=== PATIENT | male | born 1960 | race Caucasian/White ===

== ENCOUNTER 2025-04-29 16:35 | Emergency (ER) | payer BC, SELFPAY ==
--- OUTSIDE RECORDS SUMMARY | 2008-03-16 08:42 | XMS_ITS | Continuity of Care Document ---
Author Organization [facility] Address [address] [address] [place] [address] Phone Care Team Providers Care Instrument Panel Assembler Name Role Phone Unavailable Unavailable Unavailable Allergies, Adverse Reactions, Alerts Substance Reaction Status Criticality No Known allergies Medications Medication Instructions Dosage Effective Dates (start - stop) Status Comments omeprazole 20 mg Cap, Delayed Release Take one tablet by mouth daily - Active simvastatin 20 mg Tab Take 1 tablet by mouth daily - Active Multivitamin unknown Take one tablet by mouth daily - Active Protonix 40 mg Tab Take one tablet by mouth daily - No Longer Active Procedures Procedure Date Offic/outpt E&m Estab Mod-hi 2 08 [id number] Advance Directives Directive Yes / No Effective Date File Name Resuscitation Not Answered N/A N/A Life Support Not Answered N/A N/A Intubation Not Answered N/A N/A Antibiotics Not Answered N/A N/A IV Fluid Support Not Answered N/A N/A Tube Feed Not Answered N/A N/A Other Directive N/A N/A WARNING:The information contained in this section is historical and is provided for information only and does not constitute a legal document or any assurance that the information is still accurate. Please verify the information with the nguyen of the legal document before using it for clinical purposes. Encounters Encounter Description Practice Location Reason(s) For Visit Diagnoses Date Provider Providers Copied on Encounter Offic/outpt E&m Estab Mod-hi 2 [facility], [address] [address], [place], [place], [id number], [place] tel:[phone] [facility] Simeon's Esophagus 8 No Information [facility], [address] [address], [place], [place], [id number], [place] tel:[phone] [facility] No Information Savanna Mason. [address] [facility], [facility] [address], [place], [place], [id number], [place]. tel:[phone] Family History Family Member Type Diagnosis Age At Onset First degree family history Problem (finding) malignant neoplasm of lung First degree family history Problem (finding) Colon Polyps First degree family history Problem (finding) No history of Crohn's First degree family history Problem (finding) No history of Cancer, colon First degree family history Problem (finding) No history of Ulcerative Colitis Payers Payer name Insurance type Covered libertarian ID Authoriza tion(s) [employer] [id number] Social History Type Description Quantity Date Captured Comments Alcohol Use Details Caffeine Use Details Unknown Tobacco Use Status No Information Smoking Status No Information Sex Male Chief Complaint And Reason For Visit No Information Reason For Referral Reason For Referral No Information History Of Present Illness Encounter Date Complaint History Of Prese nt Illness No Information Functional Status Date Functional Assessmen t No Information Instructions Date Instruction Additional Infor mation No Information Assessments Type Assessment Date No Information Patient Care Teams Name Effective Dates (start - stop) Status Members No Information
--- OUTSIDE RECORDS SUMMARY | 2025-04-16 12:40 | XMS_ITS | Encounter Summary ---
Author Organization [employer] Address [address] [place] [address] Care Team Providers Care Controller Operations And Hr Manager Name Role Phone Marcos Villarreal MD Primary Care Provider [phone] Reason for Referral * Consult/Transfer Care (Routine) - New Request Specialty Diagnoses / Procedures Referred By Sharmaine dahl Referred To Contact Cardiology Diagnoses Dilatation of thoracic aorta (HRC) Jarek Boogie PA-C [address] [facility] [place] [address] Phone: tel: fax: Referral ID Status Reason Start Date Expiration Date V isits Requested Visits Authorized [id number] New Request 04/16/2025 07/16/2026 1 1 Scheduling Instructions Your clinician has recommended an appointment with [facility]. You can quickly schedule your appointment by signing in to your online account at [email or web address] or through the text message you may have received. You can also make an appointment by calling [phone]. We also suggest you call your health insurance provider about your benefits and coverage for this appointment. Question Answer Appointment Urgency? Non-Urgent Reason for visit? dilated thoracic aorta * Procedure/Equipment (Routine) - Closed Specialty Diagnoses / Procedures Referred By Sharmaine dahl Referred To Contact Diagnoses Abnormal CXR Procedures CT Chest WO IV Cont Jarek Boogie PA-C [address] [place] [address] Phone: tel: fax: Referral ID Status Reason Start Date Expiration Date Visits Re quested Visits Authorized [id number] Closed 04/16/2025 05/16/2025 1 1 * Procedure/Equipment (Routine) - Incomplete Specialty Diagnoses / Procedures Referred By Sharmaine dahl Referred To Contact Diagnoses Fever, unspecified fever cause Procedures XR Chest 2 Views Jarek Boogie PA-C [address] [place] [address] Phone: tel: fax: Referral ID Status Reason Start Date Expiration Date V isits Requested Visits Authorized [id number] Incomplete 04/16/2025 07/16/2026 1 1 Reason for Visit * Reason Comments Fever Encounter Details Date Type Department Care Team (Late st Contact Info) Description 04/16/2025 12:40 PM CDT Office Visit [facility] [address] [place] [phone] Jarek Boogie PA-C [address] [place] [address] Fever, unspecified fever cause; Abnormal CXR; Urinary tract infection with hematuria, site unspecified; Pneumonia of left lower lobe due to infectious organism; Dilatation of thoracic aorta (HRC); Gallbladder sludge Social History Tobacco Use Types Packs/Day Years Used Date Smoking Tobacco: Never Smokeless Tobacco: Never Alcohol Use Standard Drinks/Week Comments Not Currently 1 (1 standard drink = 0.6 oz pure alcohol) Less than 1 or 2 drinks a month Humiliation, Afraid, Rape, and Kick questionnair e Answer Date Recorded Fear of Current or Ex-Partner Not on file Within the last year, have y ou been humiliated or emotionally abused in other ways by your partner or ex-partner? No 02/18/2024 Within the last year, have y ou been kicked, hit, slapped, or otherwise physically hurt by your partner or ex-partner? No 02/18/2024 Within the last year, have y ou been raped or forced to have any kind of sexual activity by your partner or ex-partner? No 02/18/2024 PHQ-2 Answer Date Recorded PHQ-2 Score 0 01/09/2025 Financial Resource Strain Answer Date R ecorded Is it hard for you to pay fo r the very basics like food, housing, medical care or heating? No 12/28/2023 Food Insecurity Answer Date Recorded Does your food run out before you have the money to buy more? No 12/28/2023 Transportation Needs Answer Date Record ed Does a lack of transportatio n keep you from your medical appointments or from getting your medications? No 024 Sex and Gender Information Value Date Recorded Sex Assigned at Not on file Legal Sex Male 8:18 PM CDT Gender Identity Not on file Sexual Orientation Not on file Occupation Industry Job Start Date Job End Date IT Not on file Not on file Not on file documented as of this encounter Last Filed Vital Signs Vital Sign Reading Time Taken Comments Blood Pressure 129/80 04/16/2025 12:27 PM CDT Pulse 102 04/16/2025 12:27 PM CDT Temperature 37.8 C (100 F) 04/16/2025 12:27 PM CDT Respiratory Rate 18 04/16/2025 12:27 PM CDT Oxygen Saturation 94% 04/16/2025 12:27 PM CDT Inhaled Oxygen Concentration - - Weight - - Height - - Body Mass Index - - documented in this encounter Progress Notes * Jarek Boogie PA-C - 04/16/2025 12:40 PM CDT Fevers T max 102.5 for the past 5 days. Has been fatigued, decreased appetite. Denies cough, congestion Patient is a 64 year old male presenting with fevers since last Wednesday. He has taken tylenol, which helps momentarily, but then the fever returns. He denies any cough, congestion, joint pain, diarrhea, chest pain, ear pain, and neck pain. He denies rash. He denies any urinary symptoms. He is unaware of any tick bites [place] recently and no one else at home is sick. He is not on any immunocompromising medications. Remainder of review of systems is negative. Past Medical History: Problem List[1] Adverse Drug Reactions: Patient has no known allergies. Medications: amLODIPine, atorvastatin, losartan, and omeprazole Family History: Family History[2] Social History: Social History[3] Review of Systems: All systems were reviewed and found to be negative except as noted above. OBJECTIVE: General: NAD Skin: Mucous membranes are moist, no sign of dehydration. Head: Normocephalic. Eyes: PERRLA, full EOM. External exams normal. Ears: Normal pinnae, canals. TM's:[normal] Nose: Patent, without deformity. Throat: Moist mucous membranes without lesions, erythema, or exudate. Respiratory: Normal respiratory effort. Lungs are clear with good breath sounds. Heart: RR without murmurs, rubs, or gallops. Abdomen: The abdomen was flat, soft and nontender without guarding rebound or masses. Vital Signs: BP 129/80 (BP Location: Right Arm, BP Cuff Size: Regular - Long) Pulse (!) 102 Temp 37.8 ??C (100 ??F) (Oral) Resp 18 SpO2 94% Labs: Results for orders placed or performed in visit on 04/16/25 UA with Microscopic: Clean Catch Specimen: Clean Catch; Urine Result Value Ref Range Color Yellow Clarity Clear Clear Specific [place] 1.025 1.005 - 1.030 pH 6.0 5.0 - 8.0 Protein 30 (A) Neg/Trace mg/dL Glucose Negative Negative mg/dL Ketones Negative Negative mg/dL Urobilinogen 4.0 (A) <2.0 EU/dL Bilirubin Small (A) Negative Blood Small (A) Neg/Trace Nitrite Negative Negative Leukocyte Esterase Trace (A) Negative Source Clean Catch ALT (SGPT) Result Value Ref Range ALT (SGPT) 77 (H) 0 - 55 U/L Complete Blood Count-W/Diff Result Value Ref Range WBC 12.7 (H) 3.5 - 10.5 x10(9)/L RBC 5.32 4.32 - 5.72 x10(12)/L Hemoglobin 15.0 13.5 - 17.5 g/dL HCT 44.5 38.8 - 50.0 % MCV 83.6 80.0 - 100.0 fL MCH 28.2 27.6 - 33.3 pg MCHC 33.7 31.5 - 35.2 g/dL RDW 13.2 11.9 - 15.5 % Platelets 267 150 - 450 x10(9)/L Neutrophil Absolute 10.7 (H) 1.7 - 7.0 10(9)/L Lymphocyte Absolute 0.8 (L) 1.0 - 4.8 10(9)/L Monocyte Absolute 1.1 (H) 0.2 - 0.9 10(9)/L Eosinophil Absolute 0.0 0.0 - 0.5 10(9)/L Basophil Absolute 0.0 0.0 - 0.3 10(9)/L Immature Granulocyte % 0.2 0.0 - 0.5 % Urine Microscopic Evaluation: Clean Catch Specimen: Clean Catch; Urine Result Value Ref Range Red Blood Cells 0-3 0 - 3 /HPF White Blood Cells 10-20 (A) 0 - 5 /HPF Bacteria Few (A) None Seen /HPF Squamous Epithelial Cells Few None Seen, Occasional, Few /HPF Mucus Present (A) None Seen /HPF X-Rays: CT Chest WO IV Cont Result Date: 04/16/2025 EXAM: CT CHEST WO IV CONT INDICATION: abnormal cxr COMPARISON: Chest x-ray from 04/16/2025. TECHNIQUE: Noncontrast images were obtained through the chest. FINDINGS: CHEST WALL AND LOWER NECK: Unremarkable. HEART AND VASCULATURE: Normal heart size. No pericardial effusion. The thoracic aorta at the level of the proximal arch and brachiocephalic takeoff is mildly dilated measuring 4.5 cm in diameter. However, the ascending aorta more proximally demonstrates only mild ectasia measuring 4.1 cm in diameter. The distal aortic arch and descending thoracic aorta appear more normal in caliber. No significant coronary artery calcifications. MEDIASTINUM: Unremarkable esophagus. No adenopathy. LUNGS AND PLEURAL SPACE: 1.0 cm nodule in the lingula on series 4, slice 55. There is small surrounding satellite reticulonodular opacity surrounding this nodule within the lingula as well. Tiny calcified granuloma in the superior segment of the right lower lobe on slice 40. Lungs are otherwise clear. UPPERABDOMEN: Liver is diffusely hypodense compatible with hepatic steatosis. Suspect layering sludge inthe gallbladder. 3.5 cm exophytic lesion arising from the upper pole of the right kidney which has density measurements most compatible with a cyst (23 Hounsfield units). BONES: Unremarkable. 1. There is a 1.0 cm nodule in the lingula on slice 55 with surrounding small reticulonodular opacity. Although nonspecific the appearance would be most compatible with an atypical infectious processof the small airways, which is of uncertain chronicity. Short-term follow-up chest CT in three months is recommended to ensure stability or resolution, per recommendations below. 2. Mildly dilated ascending thoracic aorta, greatest at the proximal aortic arch where the aorta measures 4.5 cm in maximal diameter. Nonemergent cardiology consult recommended. 3. Diffuse hepatic steatosis. PN ConsensusRecommendation for multiple solid nodules, the largest greater than 8 mm Low risk: CT Chest WO IV Cont at 3-6 months, then consider CT Chest WO IV Cont at 18-24 months. High risk (older age, smoking history, emphysema, fibrosis): CT Chest WO IV Cont at 3-6 months, then a CT Chest WO IV Cont at 18-24 months. PN Consensus Recommendations are not intended for patients younger than 35 years, patients that are immunocompromised or patients with cancer. Imaging follow-up for these patients should be based on the overall clinical picture. Recommend non-urgent pulmonary consultation. Abnormal findings requiring follow-up. Recommend: Follow-up chest CT in three months, and nonemergent pulmonary medicine consultation and cardiology consultation within the next three months. Recommendation: imaging and consultation Signed by: Kimo Sheffield 04/16/2025 3:19 PM XR Chest 2 Views Result Date: 04/16/2025 EXAM: XR CHEST 2 VIEWS INDICATION: fever of unknown origin COMPARISON: 01/14/2014. FINDINGS: 9 mm nodular opacity projecting over the lateral aspect of the left lower lung. This was not present on the prior examination. A CT scan is recommended for further assessment. Normal heart size. No vascular engorgement. No pneumothorax. No confluent airspace infiltrate. No pleural effusion. Abnormal findings requiring follow-up. Recommend: Noncontrast chest CT, either now or within the next two weeks.. Recommendation: imaging Signed by: Edgardo Strong 04/16/2025 2:09 PM Initial x-rays are interpreted independently by myself. ASSESSMENT: 1. Fever, unspecified fever cause 2. Abnormal CXR 3. Urinary tract infection with hematuria, site unspecified 4. Pneumonia of left lower lobe due to infectious organism 5. Dilatation of thoracic aorta (HRC) 6. Gallbladder sludge Medical Decision Making: Patient is a 64 year old male presenting for evaluation for fevers of 5 days. He is well-appearing and non-toxic on examination. His physical exam and ROS was unremarkable. His fever is low grade in clinic today, but he continues to feel fatigued and have diminished appetite. Differential diagnosis is broad and includes Lyme disease, tick-borne etiologies, pneumonia, UTI,acute abdominal etiologies and other causes. A CBC was obtained which showed a white count of 12.7 with a left shift of 10.7 neutrophils. His ALT was 77. UA showed a small amount of blood, trace amount of leukocyte esterase and 10-20 white blood cells. A chest x-ray showed a 9 mm nodular opacity projecting over the lateral aspect of the left lower lung. A noncontrast chest CT was recommended. This was obtained which showed an atypical pneumonia. Chest CT also showed a mildly dilated ascending thoracic aortic. A nonemergent cardiology consult was recommended. CT also showed sludge in the gallbladder. At this point, I am going to place the patient on doxycycline to cover both atypical pneumonia and possibility for a tick-borne illness. I discussed with patient his ALT could be elevated due to Lyme disease or the fact that he has sludge in his gallbladder. Patient does not have any abdominal pain, therefore I do not feel an emergent right upper quadrant ultrasound is needed today. Patient was placed on cefdinir to cover for both pneumonia and UTI. I chose this over Augmentin due to thepotential for cholestasis with Augmentin. I would like the patient to make an appointment with his primary provider in the next 3-4 weeks. At this appointment, they can discuss a repeat chest CT to ensure resolution of today's findings. In addition, they can discuss if a gallbladder ultrasound would be warranted. Lastly, a referral to Cardiology was placed in my chart for the dilated thoracic aorta findings. Patient will call make this appointment. A Lyme and tick disease panel are still pending. I discussed the Lyme test may be inaccurate for up to 4-6 weeks. Patient is being covered for Lyme today with doxycycline. Additional treatment for tick-borne illness will be decided on the resultsof the tick panel. Patient will continue to take Tylenol for his fever. He will closely monitor hissymptoms. I discussed his fever should starts to resolve over the next 2-3 days. If patient continues to run a high fever despite today's treatment plan, he should return for re-evaluation. PLAN: Orders Placed This Encounter Complete Blood Count -W/Diff UA with Microscopic: Clean Catch ALT (SGPT) XR Chest [address] Chest WO IV Cont Lyme Antibody (Reflex to Lyme Confirmatory Panel) Tickborne Disease Panel by PCR Cardiology Consult-Adults doxycycline hyclate (VIBRA-TABS) 100 MG tablet cefdinir (OMNICEF) 300 MG capsule There are no Patient Instructions on file for this visit. No orders of the defined types were placed in this encounter. RTC p.r.n. Total visit time was 45 minutes. [1] Patient Active Problem List Diagnosis Simeon's esophagus Mild obstructive sleep apnea Dyslipidemia (HRC) History of basal cell carcinoma Elevated PSA Prostate cancer (HRC) Essential hypertension (HRC) Congenital malformation of intestine, unspecified History of dysplastic nevus Erectile dysfunction following radical prostatectomy Stress incontinence (female) (male) [2] Family History Problem Relation Name Age of Onset Stroke Mother Vianey Cancer, Lung Father Josh Cancer Father Josh [3] Social History Tobacco Use Smoking status: Never Smokeless tobacco: Never Vaping Use Vaping status: Never Used Substance Use Topics Alcohol use: Not Currently Alcohol/week: 1.0 standard drink of alcohol Types: 1 Cans of beer per week Comment: Less than 1 or 2 drinks a month Drug use: Never documented in this encounter Nursing Notes * Mariella Quintero RN - 04/16/2025 12:40 PM CDT Fevers T max 102.5 for the past 5 days. Has been fatigued, decreased appetite. Denies cough, congestion documented in this encounter Plan of Treatment Upcoming Encounters Date Type Department Care Team (Late st Contact Info) Description 05/04/2025 10:30 AM CDT Appointment [facility] [address] [place] [address] Marisol Schuler MD [address] [place] [address] 06/01/2025 3:15 PM CDT Appointment [facility] [place] [address] Card[facility] [address] [place] [phone] Piero De Los Santos DO [address] [place] [address] 06/06/2025 8:00 AM CDT Appointment [facility] [place] [address] [facility]rology [address] [place] [phone] [place] [address] [place], [place] [phone] Scheduled Referrals Name Type Priority Associated Diagnoses Orde r Schedule Cardiology Consult-Adults Referral Routine Dilatation of thoracic aorta (HRC) Ordered: 04/16/2025 documented as of this encounter Results * CT Chest WO IV Cont (04/16/2025 3:03 PM CDT) Anatomical Region Laterality Modality Chest, Lung Computed Tomogra phy Impressions 04/16/2025 3:19 PM CDT 1. There is a 1.0 cm nodule in the lingula on slice 55 with surrounding small reticulonodular opacity. Although nonspecific the appearance would be most compatible with an atypical infectious process of the small airways, which is of uncertain chronicity. Short-term follow-up chest CT in three months is recommended to ensure stability or resolution, per recommendations below. 2. Mildly dilated ascending thoracic aorta, greatest at the proximal aortic arch where the aorta measures 4.5 cm in maximal diameter. Nonemergent cardiology consult recommended. 3. Diffuse hepatic steatosis. PN Consensus Recommendation for multiple solid nodules, the largest greater than 8 mm Low risk: CT Chest WO IV Cont at 3-6 months, then consider CT Chest WO IV Cont at 18-24 months. High risk (older age, smoking history, emphysema, fibrosis): CT Chest WO IV Cont at 3-6 months, then a CT Chest WO IV Cont at 18-24 months. PN Consensus Recommendations are not intended for patients younger than 35 years, patients that are immunocompromised or patients with cancer. Imaging follow-up for these patients should be based on the overall clinical picture. Recommend non-urgent pulmonary consultation. Abnormal findings requiring follow-up. Recommend: Follow-up chest CT in three months, and nonemergent pulmonary medicine consultation and cardiology consultation within the next three months. Recommendation: imaging and consultation Signed by: Kimo Sheffield 04/16/2025 3:19 PM Narrative 04/16/2025 3:19 PM CDT EXAM: CT CHEST WO IV CONT INDICATION: abnormal cxr COMPARISON: Chest x-ray from 04/16/2025. TECHNIQUE: Noncontrast images were obtained through the chest. FINDINGS: CHEST WALL AND LOWER NECK: Unremarkable. HEART AND VASCULATURE: Normal heart size. No pericardial effusion. The thoracic aorta at the level of the proximal arch and brachiocephalic takeoff is mildly dilated measuring 4.5 cm in diameter. However, the ascending aorta more proximally demonstrates only mild ectasia measuring 4.1 cm in diameter. The distal aortic arch and descending thoracic aorta appear more normal in caliber. No significant coronary artery calcifications. MEDIASTINUM: Unremarkable esophagus. No adenopathy. LUNGS AND PLEURAL SPACE: 1.0 cm nodule in the lingula on series 4, slice 55. There is small surrounding satellite reticulonodular opacity surrounding this nodule within the lingula as well. Tiny calcified granuloma in the superior segment of the right lower lobe on slice 40. Lungs are otherwise clear. UPPER ABDOMEN: Liver is diffusely hypodense compatible with hepatic steatosis. Suspect layering sludge in the gallbladder. 3.5 cm exophytic lesion arising from the upper pole of the right kidney which has density measurements most compatible with a cyst (23 Hounsfield units). BONES: Unremarkable. us Jarek Boogie PA-C RAD CT Edited Resu lt - Final * XR Chest 2 Views (04/16/2025 2:02 PM CDT) Anatomical Region Laterality Modality Chest, Lung Digital Radiogra phy Narrative 04/16/2025 2:09 PM CDT EXAM: XR CHEST 2 VIEWS INDICATION: fever of unknown origin COMPARISON: 01/14/2014. FINDINGS: 9 mm nodular opacity projecting over the lateral aspect of the left lower lung. This was not present on the prior examination. A CT scan is recommended for further assessment. Normal heart size. No vascular engorgement. No pneumothorax. No confluent airspace infiltrate. No pleural effusion. Abnormal findings requiring follow-up. Recommend: Noncontrast chest CT, either now or within the next two weeks.. Recommendation: imaging Signed by: Edgardo Strong 04/16/2025 2:09 PM Procedure Note Edgardo Strong MD - 04/16/2025 EXAM: XR CHEST 2 VIEWS INDICATION: fever of unknown origin COMPARISON: 01/14/2014. FINDINGS: 9 mm nodular opacity projecting over the lateral aspect of the left lowerlung. This was not present on the prior examination. A CT scan isrecommended for further assessment. Normal heart size. No vascular engorgement. No pneumothorax. Noconfluent airspace infiltrate. No pleural effusion. Abnormal findings requiring follow-up. Recommend: Noncontrast chest CT, either now or within the next twoweeks.. Recommendation: imaging Signed by: Edgardo Strong 04/16/2025 2:09 PM Jarek Boogie PA-C RAD GD Final Resul t * (ABNORMAL) UA with Microscopic: Clean Catch (04/16/2025 1:44 PM CDT) Color Yellow 04/16/2025 2:10 PM CDT [facility] Clarity Clear Clear 04/16/2025 2:10 PM CDT [facility] Specific [place] 1.025 1.005 - 1.030 04/16/2025 2:10 PM CDT [facility] pH 6.0 5.0 - 8.0 04/16/2025 2:10 PM CDT [facility] Protein 30(A) Neg/Trace mg/dL 04/16/2025 2:10 PM CDT [facility] Glucose Negative Negative mg/dL 04/16/2025 2:10 PM CDT [facility] Ketones Negative Negative mg/dL 04/16/2025 2:10 PM CDT [facility] Urobilinogen 4.0(A) <2.0 EU/dL 04/16/2025 2:10 PM CDT [facility] Bilirubin Small(A) Negative 04/16/2025 2:10 PM CDT [facility] Blood Small(A) Neg/Trace 04/16/2025 2:10 PM CDT [facility] Nitrite Negative Negative 04/16/2025 2:10 PM CDT [facility] Leukocyte Esterase Trace(A) Negative 04/16/2025 2:10 PM CDT [facility] Source Clean Catch 04/16/2025 2:10 PM CDT [facility] Urine URINE SPECIMEN COLLECTION, CLEAN CATCH / Unknown Non-blood Collection / Unknown 04/16/2025 1:44 PM CDT 04/16/2025 1:44 PM CDT Jarek DURANC LAB_1 Final Resul t Performing Organization Address [facility] de Phone Number [facility] CLIA: [id number] [address] [place] [address], [facility] * (ABNORMAL) ALT (SGPT) (04/16/2025 1:34 PM CDT) ALT (SGPT) 77(H) 0 - 55 U/L 04/16/2025 2:35 PM CDT [facility] Blood Venipuncture / Unknown 04/16/2025 1:34 PM CDT 04/16/2025 1:34 PM CDT Jarek JORGENSEN-C LAB_1 Final Resul t Performing Organization Address [facility]/ZIP Co de Phone Number [facility] CLIA: [id number] [address] [place] [address] * Tickborne Disease Panel by PCR (04/16/2025 1:34 PM CDT) [facility] Anaplasma Phagocytophilum Not Detected Not Detected 04/17/2025 12:33 PM CDT [facility] Ehrlicia Species Not Detected Not Detected 04/17/2025 12:33 PM CDT [facility] Babesia Species Not Detected Not Detected 04/17/2025 12:33 PM CDT [facility] Blood VENOUS BLOOD SPECIMEN / Unknown Venipuncture / Unknown 04/16/2025 1:34 PM CDT 04/16/2025 1:34 PM CDT Narrative [facility] - 04/17/2025 12:33 PM CDT Test performed by real-time PCR. This test was developed, and its performance characteristics determined by [facility]. It has not been cleared or approved by the [place] Food and Drug Administration. Jarek Boogie PA-C LAB_1 Final Resul t Performing Organization Address [facility] Co de Phone Number [facility] CLIA: [id number] [address] [place] [address] * Lyme Antibody (Reflex to Lyme Confirmatory Panel) (04/16/2025 1:34 PM CDT) [facility] Lyme Disease Serology Negative Negative 04/17/2025 9:13 AM CDT [facility] Comment:The magnitude of the measured result, above the cutoff, is not indicative of the amount of antibody present. Blood Venipuncture / Unknown 04/16/2025 1:34 PM CDT 04/16/2025 1:34 PM CDT Jarek JORGENSEN-C LAB_1 Final Resul t Performing Organization Address City/[facility]/ZIP Co de Phone Number [facility] CLIA: [id number] [address] documented in this encounter Visit Diagnoses Diagnosis Fever, unspecified fever cause Abnormal CXR Other nonspecific abnormal finding of lung field Urinary tract infection with hematuria, site unspecified Pneumonia of left lower lobe due to infectious organism Dilatation of thoracic aorta (HRC) Thoracic aneurysm without mention of rupture Gallbladder sludge Calculus of gallbladder without mention of cholecystitis or obstruction Fever, unspecified fever cause Abnormal CXR Other nonspecific abnormal finding of lung field documented in this encounter Care Teams Controller Operations And Hr Manager Relationship Specialty [place] [address] [place] [address] PCP - General Family Practice 07/11/21 documented as of this encounter
--- OUTSIDE RECORDS SUMMARY | 2025-04-16 13:40 | XMS_ITS | Encounter Summary ---
Author Organization [employer] Address [address] [address] Care Team Providers Care Mixer Blender Name Role Phone CherelleMarcos rock MD Primary Care Provider [phone] Encounter Details Date Type Department Care Team (Late st Contact Info) Description 04/16/2025 1:40 PM CDT Lab Visit [facility] [address] [place] [address] Fever, unspecified fever cause Social History Tobacco Use Types Packs/Day Years [...] on file documented as of this encounter Plan of Treatment Upcoming Encounters Date Type Department Care Team (Late st Contact Info) Description 05/04/2025 10:30 AM CDT Appointment [facility] [address] [place] [address] Marisol Schuler MD [address] [place] [address] 06/01/2025 3:15 PM CDT Appointment [place] [address] Cardiology [address] [place] [phone] Piero De Los Santos, [address] [place] [address] 06/06/2025 8:00 AM CDT Appointment [facility] [address] Urology [address] [place] [address] [place] [address] [place], [place] [address] documented as of this encounter Procedures Procedure Name Priority Date/Time Associated Diagnosis Comments UA WITH MICROSCOPIC STAT 04/16/2025 1 :44 PM CDT Fever, unspecified fever cause UA MICRO STAT 04/16/2025 1:44 PM CDT Fever, unspecified fever cause CBC AND DIFFERENTIAL PANEL STAT 04/16/2025 1:34 PM CDT Fever, unspecified fever cause TICKBORNE DISEASE PANEL BY PCR Routine 04/16/2025 1:34 PM CDT Fever, unspecified fever cause COMPLETE BLOOD COUNT-W/DIFF STAT 04/16/2025 1:34 PM CDT Fever, unspecified fever cause LYME ANTIBODY (REFLEX TO LYME CONFIRMATORY PANEL) Routine 04/16/2025 1:34 PM CDT Fever, unspecified fever cause ALT (SGPT) STAT 04/16/2025 1:34 PM CDT Fever, unspecified fever cause documented in this encounter Results * (ABNORMAL) Urine Microscopic Evaluation: Clean Catch (04/16/2025 1:44 PM CDT) Red Blood Cells 0-3 0 - 3 /HPF 04/16/2025 2:10 PM CDT [facility] White Blood Cells 10-20(A) 0 - 5 /HPF 04/16/2025 2:10 PM CDT [facility] Bacteria Few(A) None Seen /HPF 04/16/2025 2:10 PM CDT [facility] Squamous Epithelial Cells Few None Seen, Occasiona l, Few /HPF 04/16/2025 2:10 PM CDT [facility] Mucus Present(A) None Seen /HPF 04/16/2025 2:10 PM CDT [facility] Urine URINE SPECIMEN COLLECTION, CLEAN CATCH / Unknown Non-blood Collection / Unknown 04/16/2025 1:44 PM CDT 04/16/2025 1:44 PM CDT Jarek Boogie PA-C LAB_1 Final Resul t [facility] CLIA: [id number] [place] [address], [facility] * (ABNORMAL) UA with Microscopic: Clean Catch (04/16/2025 1:44 PM CDT) Color Yellow 04/16/2025 2:10 PM CDT [facility] Clarity Clear Clear 04/16/2025 2:10 PM CDT [facility] Specific [place] 1.025 1.005 - 1.030 04/16/2025 2:10 PM CDT [facility] pH 6.0 5.0 - 8.0 04/16/2025 2:10 PM CDT [facility] Protein 30(A) Neg/Trace mg/dL 04/16/2025 2:10 PM CDT [facility] Glucose Negative Negative mg/dL 04/16/2025 2:10 PM CDT [facility] Ketones Negative Negative mg/dL 04/16/2025 2:10 PM CDT [facility] Urobilinogen 4.0(A) <2.0 EU/dL 04/16/2025 2:10 PM CDT [facility] Bilirubin Small(A) Negative 04/16/2025 2:10 PM CDT [facility] Blood Small(A) Neg/Trace 04/16/2025 2:10 PM CDT [facility] Nitrite Negative Negative 04/16/2025 2:10 PM CDT [facility] Leukocyte Esterase Trace(A) Negative 04/16/2025 2:10 PM CDT [facility] Source Clean Catch 04/16/2025 2:10 PM CDT [facility] Urine URINE SPECIMEN COLLECTION, CLEAN CATCH / Unknown Non-blood Collection / Unknown 04/16/2025 1:44 PM CDT 04/16/2025 1:44 PM CDT Jarek Boogie PA-C LAB_1 Final Resul t Performing Organization Address [facility]/State/ZIP Co de Phone Number [facility] CLIA: [id number] [place] [address], [facility] * (ABNORMAL) Complete Blood Count-W/Diff (04/16/2025 1:34 PM CDT) WBC 12.7(H) 3.5 - 10.5 x10(9)/L 04/16/2025 1:41 PM [facility] RBC 5.32 4.32 - 5.72 x10(12)/L 04/16/2025 1:41 PM [facility] Hemoglobin 15.0 13.5 - 17.5 g/dL 04/16/2025 1:41 PM [facility] HCT 44.5 38.8 - 50.0 % 04/16/2025 1:41 PM [facility] MCV 83.6 80.0 - 100.0 fL 04/16/2025 1:41 PM [facility] MCH 28.2 27.6 - 33.3 pg 04/16/2025 1:41 PM [facility] MCHC 33.7 31.5 - 35.2 g/dL 04/16/2025 1:41 PM [facility] RDW 13.2 11.9 - 15.5 % 04/16/2025 1:41 PM [facility] Platelets 267 150 - 450 x10(9)/L 04/16/2025 1:41 PM [facility] Neutrophil Absolute 10.7(H) 1.7 - 7.0 10(9)/L 04/16/2025 1:41 PM [facility] Lymphocyte Absolute 0.8(L) 1.0 - 4.8 10(9)/L 04/16/2025 1:41 PM [facility] Monocyte Absolute 1.1(H) 0.2 - 0.9 10(9)/L 04/16/2025 1:41 PM [facility] Eosinophil Absolute 0.0 0.0 - 0.5 10(9)/L 04/16/2025 1:41 PM [facility] Basophil Absolute 0.0 0.0 - 0.3 10(9)/L 04/16/2025 1:41 PM [facility] Immature Granulocyte % 0.2 0.0 - 0.5 % 04/16/2025 1:41 PM [facility] Blood Venipuncture / Unknown 04/16/2025 1:34 PM CDT 04/16/2025 1:34 PM CDT Jarek JORGENSEN-C LAB_1 Final Resul t Performing Organization Address City/[facility]/ZIP Co de Phone Number [facility] CLIA: [id number] [address] [place] [address] * (ABNORMAL) ALT (SGPT) (04/16/2025 1:34 PM CDT) Pathologist [facility] ALT (SGPT) 77(H) 0 - 55 U/L 04/16/2025 2:35 PM CDT [facility] Blood Venipuncture / Unknown 04/16/2025 1:34 PM CDT 04/16/2025 1:34 PM CDT Jarek JORGENSEN-C LAB_1 Final Resul t Performing Organization Address [facility] de Phone Number [facility] CLIA: [id number] [address] [place] [address] * Tickborne Disease Panel by PCR (04/16/2025 1:34 PM CDT) [facility] Anaplasma Phagocytophilum Not Detected Not Detected 04/17/2025 12:33 PM CDT [facility] Ehrlicia Species Not Detected Not Detected 04/17/2025 12:33 PM CDT [facility] Babesia Species Not Detected Not Detected 04/17/2025 12:33 PM CDT [facility] Blood VENOUS BLOOD SPECIMEN / Unknown Venipuncture / Unknown 04/16/2025 1:34 PM CDT 04/16/2025 1:34 PM CDT Narrative [facility] - 04/17/2025 12:33 PM CDT Test performed by real-time PCR. This test was developed, and its performance characteristics determined by [facility]. It has not been cleared or approved by the [place] Food and Drug Administration. Jarek JORGENSEN-C LAB_1 Final Resul t Performing Organization Address City/[facility]/ZIP Co de Phone Number [facility] CLIA: [id number] [address] * Lyme Antibody (Reflex to Lyme Confirmatory Panel) (04/16/2025 1:34 PM CDT) Lyme Disease Serology Negative Negative 04/17/2025 9:13 AM CDT [facility] Comment:The magnitude of the measured result, above the cutoff, is not indicative of the amount of antibody present. Blood Venipuncture / Unknown 04/16/2025 1:34 PM CDT 04/16/2025 1:34 PM CDT Jarek Boogie PA-C LAB_1 Final Resul t Performing Organization Address [facility] Co de Phone Number [facility] CLIA: [id number] [address] documented in this encounter Visit Diagnoses Diagnosis Fever, unspecified fever cause documented in this encounter Care Teams Mixer Blender Relationship Specialty [place] [address] [place] [address] PCP - General Family Practice 07/11/21 documented as of this encounter
--- OUTSIDE RECORDS SUMMARY | 2025-04-16 14:00 | XMS_ITS | Encounter Summary ---
Author Organization [employer] Address [address] [place] [address] Care Team Providers Care Cooking Teacher Name Role Phone CherelleMarcos rock MD Primary Care Provider [phone] Reason for Visit * Procedure/Equipment (Routine) - Incomplete Specialty Diagnoses / Procedures Referred By Sharmaine dahl Referred To Contact Diagnoses Fever, unspecified fever cause Procedures XR Chest 2 Views Jarek Boogie PA-C [address] [place] [address] Phone: tel: fax: Referral ID Status Reason Start Date Expiration Date V isits Requested Visits Authorized [id number] Incomplete 04/16/2025 07/16/2026 1 1 Encounter Details Date Type Department Care Team (Latest Contact Info) Description 04/16/2025 2:00 PM CDT Ancillary Procedure [facility] [address] [place] [address] Jarek Boogie PA-C [address] [place] [address] Fever, unspecified fever cause Social History Tobacco [...] Info) Description 05/04/2025 10:[address] [facility] [address] [place] [address] Marisol cShuler MD [address] [place] [address] 06/01/2025 3:15 PM CDT Appointment [address] [address] Cardiology [address] [place] [address] Piero De Los Santos, DO [address] [place] [address] 06/06/2025 8:00 AM CDT Appointment [place] [place] [address] [place] [phone] [place] [address] [facility] [place] [address] documented as of this encounter Procedures Procedure Name Priority Date/Time Associated Diagnosis Comments XR CHEST 2 VIEWS STAT 04/16/2025 2:02 PM CDT Fever, unspecified fever cause documented in this encounter Results * XR Chest 2 Views (04/16/2025 2:02 [...] by: Edgardo Strong 04/16/2025 2:09 PM Jarek NEWMAN GD Final Resul t documented in this encounter Visit Diagnoses Diagnosis Fever, unspecified fever cause documented in this encounter Care Teams Cooking Teacher Relationship Specialty [place] [address] [place] [address] PCP - General Family Practice 07/11/21 documented as of this encounter
--- OUTSIDE RECORDS SUMMARY | 2025-04-16 15:00 | XMS_ITS | Encounter Summary ---
Author Organization [employer] Address [address] [place] [address] Care Team Providers Care Veneer Jointer Returner Name Role Phone CherelleMarcos rock MD Primary Care Provider [phone] Reason for Visit * Procedure/Equipment (Routine) - Closed Specialty Diagnoses / Procedures Referred By Sharmaine dahl Referred To Contact Diagnoses Abnormal CXR Procedures CT Chest WO IV Cont Jarek Boogie PA-C [address] [place] [address] Phone: tel: fax: Referral ID Status Reason Start Date Expiration Date Visits Re quested Visits Authorized [id number] Closed 04/16/2025 05/16/2025 1 1 Encounter Details Date Type Department Care Team (Late st Contact Info) Description 04/16/2025 3:00 PM CDT Ancillary [place] [address] [place], [place] [id number] Jarek Boogie PA-C [address] [place] [address] Abnormal CXR Social History Tobacco Use Types Packs/Day Years [...] Info) Description 05/04/2025 10:30 AM CDT Appointment [facility] [address] D[address]ology [address] [place] [address] Marisol Schuler MD [address] [place] [address] 06/01/2025 3:15 PM CDT Appointment [place] [address] Cardiology [address] [place] [address] Piero De Los Santos DO [address] [place] [address] 06/06/2025 8:00 AM CDT Appointment [place] [place] [address] Urology [address] [place] [phone] [place] [address] [place] [address] documented as of this encounter Procedures Procedure Name Priority Date/Time Associated Diagnosis Comments CT CHEST WO IV CONT STAT 04/16/2025 3 :03 PM CDT Abnormal CXR documented in this encounter Results * CT Chest WO [...] RAD CT Edited Resu lt - Final documented in this encounter Visit Diagnoses Diagnosis Abnormal CXR Other nonspecific abnormal finding of lung field documented in this encounter Care Teams Veneer Jointer Returner Relationship Specialty Start [place] [address] [place] [address] PCP - General Family Practice 07/11/21 documented as of this encounter
--- OUTSIDE RECORDS SUMMARY | 2025-04-23 16:20 | XMS_ITS | Encounter Summary ---
Author Organization [facility] Address [address], [place] [address] Care Team Providers Care Area Relief Pilot Name Role Phone CherelleMarcos MD Primary Care Provider [phone] Reason for Visit * Reason Comments Follow-up Fever Encounter Details Date Type Department Care Team (Late st Contact Info) Description 04/23/2025 4:20 PM CDT Office Visit [place] [facility] [facility] [address] [place] [address] Harjit Patricio, WHEEL TRUING MACHINE TENDER, DEGREE CLERK [address] [place], [place] [phone] Fever, unspecified fever cause; Urinary tract infection with hematuria, site unspecified Social History Tobacco Use Types Packs/Day Years [...] Sign Reading Time Taken Comments Blood Pressure 133/77 04/23/2025 3:51 PM CDT Pulse 95 04/23/2025 3:51 PM CDT Temperature 39 C (102.2 F) 04/23/2025 3:51 PM CDT Respiratory Rate 18 04/23/2025 3:51 PM CDT Oxygen Saturation 96% 04/23/2025 3:51 PM CDT Inhaled Oxygen Concentration - - Weight - - Height - - Body Mass Index - - documented in this encounter Patient Instructions * Patient Instructions* Harjit Patricio, LUCIANO, DEGREE CLERK - 04/23/2025 4:20 PM CDT As with all flouroquinolones, like the antibiotic, that you were prescribed today there is a chanceof tendonopathy including tendon rupture. If you develop muscle/joint aches particularly in your lower extremities stop the medications and follow up with your doctor. Stop Cefdinir Take Probiotics * Attachments The following attachments cannot be sent through Care Everywhere. * UTI (Urinary Tract Infection): Male (Moldovan) documented in this encounter Progress Notes * Harjit Patricio APRN, CNP - 04/23/2025 4:20 PM CDT Chief Complaint Patient presents with Follow-up Fever Patient ID: Familia Lawrence Date of : 1960 SUBJECTIVE: 64 y.o. male presents with presents for evaluation of ongoing fever was evaluated a week ago and put on 2 different antibiotics for a likely lung infection and for a urinary infection. He returns today with continued fevers. Continues to have no cough or sore throat. No nausea or vomiting. Denies any urinary symptoms. Is currently taking antibiotics as noted and has 3 more days left. Denies any new or worsening symptoms however continues to have a fever therefore presented today for re-evaluation. Past medical and surgical history: Problem List[1] Family History: Family History[2] Social History: Social History[3] Medications: amLODIPine, atorvastatin, cefdinir, doxycycline hyclate, levoFLOXacin, losartan, and omeprazole Allergies: No Known Allergies ROS: These systems otherwise negative unless noted in HPI OBJECTIVE: Vitals: Patient Vitals for the past 24 hrs: BP Temp Temp src Pulse Resp SpO2 04/23/25 1551 133/77 (!) 39 ??C (102.2 ??F) Tympanic 95 18 96 % General: Alert, No obviousdiscomfort, well kept Eyes: No scleral icterus or conjunctival injection ENT: Moist mucus membranes, No lymphadenopathy Normal voice Resp: Normal work of breathing and No cough CV: Normal rate GI: Abdomen soft and non-distended. Normoactive BS. Non-tender, , No distention, No CVA tenderness,and Non-surgical without peritoneal features Skin: Warm, dry. No rashes or petechiae Musculoskeletal: Normal gross ROM Neuro: Alert and oriented to person/place/time, normal sensation Psychiatric: Normal affect, cooperative, good eye contact UC Course: LABS: Results for orders placed or performed in visit on 04/23/25 Complete Blood Count-W/Diff Result Value Ref Range WBC 11.7 (H) 3.5 - 10.5 x10(9)/L RBC 4.90 4.32 - 5.72 x10(12)/L Hemoglobin 13.8 13.5 - 17.5 g/dL HCT 41.7 38.8 - 50.0 % MCV 85.1 80.0 - 100.0 fL MCH 28.2 27.6 - 33.3 pg MCHC 33.1 31.5 - 35.2 g/dL RDW 13.2 11.9 - 15.5 % Platelets 502 (H) 150 - 450 x10(9)/L Neutrophil Absolute 9.4 (H) 1.7 - 7.0 10(9)/L Lymphocyte Absolute 1.1 1.0 - 4.8 10(9)/L Monocyte Absolute 0.9 0.2 - 0.9 10(9)/L Eosinophil Absolute 0.2 0.0 - 0.5 10(9)/L Basophil Absolute 0.0 0.0 - 0.3 10(9)/L Immature Granulocyte % 0.4 0.0 - 0.5 % Results for orders placed or performed in visit on 04/23/25 Urinalysis Routine, Micro/Culture if Pos: Clean Catch Specimen: Clean Catch; Urine Result Value Ref Range Urine Microscopic Evaluation Reflex Order Comment Urinalysis results meet criteria for reflex, urine microscopic evaluation performed. Color Yellow Clarity Hazy (A) Clear Specific [place] 1.020 1.005 - 1.030 pH 6.0 5.0 - 8.0 Protein 30 (A) Neg/Trace mg/dL Glucose Negative Negative mg/dL Ketones Negative Negative mg/dL Urobilinogen 2.0 (A) <2.0 EU/dL Bilirubin Small (A) Negative Blood Trace Neg/Trace Nitrite Negative Negative Leukocyte Esterase Trace (A) Negative Source Clean Catch Urine Microscopic Evaluation: Clean Catch Specimen: Clean Catch; Urine Result Value Ref Range Urine Culture Comment Urinalysis results do not meet criteria for urine culture reflex. Red Blood Cells 0-3 0 - 3 /HPF White Blood Cells 6-9 (A) 0 - 5 /HPF Bacteria Moderate (A) None Seen /HPF Squamous Epithelial Cells Few None Seen, Occasional, Few /HPF Mucus Present (A) None Seen /HPF IMAGING: CT Chest WO IV Cont Result Date: 04/17/2025 EXAM: CT CHEST WO IV CONT INDICATION: [...] upper pole of the right kidney which hasdensity measurements most compatible with a cyst (23 [...] Signed by: Edgardo Strong 04/16/2025 2:09 PM Reviewed previous imaging studies as well as previous laboratory studies. Medical Decision Making: Familia Lawrence is a 64 y.o. male presented with concerns for fever as noted above. His examination showed no acute physical findings. Review of his previous laboratory studies did show signs of urine infection however culture was not obtained. Given that patient continued to have fevers I repeated his urinalysis which again show signs of infection. I suspect he had a partially treated urine infection. He does not show signs of pyelonephritis. Imaging was not indicated today due to lack of any findings and very thorough previous evaluation. He does however have some gallbladder sludge thatwas noted on previous CT scan. If symptoms continue with unexplained fever he should go to the emergency department for more thorough evaluation. I will switch him to Levaquin at this time. He will stop the cefdinir but finish the doxycycline course. I advised him to take probiotics and provided him with a tendinopathy warning. At this point no further testing or imagery is indicated. We will follow up as recommended. Concerning signs and symptoms and reasons to present to the emergency department sooner were discussed. He is discharged home. Diagnosis and Associated Orders ICD-10-CM 1. Fever, unspecified fever cause R50.9 Urinalysis Routine, Micro/Culture if Pos: Clean Catch Complete Blood Count -W/Diff Urine Microscopic Evaluation: Clean Catch Urine Culture - Collect in Lab 2. Urinary tract infection with hematuria, site unspecified N39.0 R31.9 PLAN: New Prescriptions LEVOFLOXACIN (LEVAQUIN) 750 MG TABLET Take 1 Tablet (750 mg) by mouth daily for 5 days. Discharge Instructions None Discharge References/Attachments UTI (Urinary Tract Infection): Male (Mold[place]) Follow up with primary care physician in 3 - 5 days or sooner if symptoms worsen. May return here or go to the ER if worsening or concerns. Call here if any concerns whatsoever. [1] Patient Active Problem List Diagnosis Simeon's [...] documented in this encounter Nursing Notes * Marilyn Pabon RN - 04/23/2025 4:20 PM CDT Patient presents with ongoing fever, chills, fatigue and poor appetite (10 pound weight loss approximate). He was seen in on 04/16/25 and has been taking the two prescribed antibiotics. Patient requests an excuse letter for work/school: No documented in this encounter Plan of Treatment Upcoming Encounters Date Type Department Care Team (Late st Contact Info) Description 05/04/2025 10:30 AM CDT Appointment [place] [address] [place] [address] Marisol Schuler MD [address] [place] [address] 06/01/2025 3:15 PM CDT Appointment [facility] [address] Cardiology [address] [place] [phone] Piero De Los Santos, [address] [place], [place] [address] 06/06/2025 8:00 AM CDT Appointment [facility] [address] [facility] [address] [place] [address] [place] [address] [place], [place] [phone] documented as of this encounter Procedures Procedure Name Priority Date/Time Associated Diagnosis Comments URINE CULTURE Routine 04/23/2025 4:23 PM CDT Fever, unspecified fever cause URINALYSIS ROUTINE, MICRO/CULTURE IF POS STAT 04/23/2025 4:23 PM CDT Fever, unspecified fever cause UA MICRO STAT 04/23/2025 4:23 PM CDT Fever, unspecified fever cause documented in this encounter Results * Urine Culture - Collect in Lab (04/23/2025 4:23 PM CDT) Urine Culture No Growth After 1 Day 04/24/2025 8:32 PM CDT [facility] Urine URINE SPECIMEN COLLECTION, CLEAN CATCH / Unknown Non-blood Collection / Unknown 04/23/2025 4:23 PM CDT 04/23/2025 4:39 PM CDT us Harjit Patricio WHEEL TRUING MACHINE TENDER, DEGREE CLERK LAB_1 Final Re sult [facility] CLIA: [id number] [address] [place] [id number] [place] [address] * (ABNORMAL) Urine Microscopic Evaluation: Clean Catch (04/23/2025 4:23 PM CDT) Urine Culture Comment Urinalysis results do not meet criteria for urine culture reflex. 04/23/2025 5:03 PM CDT [facility] Red Blood Cells 0-3 0 - 3 /HPF 04/23/2025 5:03 PM CDT [facility] White Blood Cells 6-9(A) 0 - 5 /HPF 04/23/2025 5:03 PM CDT [facility] Bacteria Moderate(A) None Seen /HPF 04/23/2025 5:03 PM CDT [facility] Squamous Epithelial Cells Few None Seen, Occasiona l, Few /HPF 04/23/2025 5:03 PM CDT [facility] Mucus Present(A) None Seen /HPF 04/23/2025 5:03 PM CDT [facility] Urine URINE SPECIMEN COLLECTION, CLEAN CATCH / Unknown Non-blood Collection / Unknown 04/23/2025 4:23 PM CDT 04/23/2025 4:39 PM CDT us Harjit Patricio APRN, DEGREE CLERK LAB_1 Final Re sult [facility] CLIA: [id number] [place] [address], [facility] * (ABNORMAL) Urinalysis Routine, Micro/Culture if Pos: Clean Catch (04/23/2025 4:23 PM CDT) Urine Microscopic Evaluation Reflex Order Comment Urinalysis results meet criteria for reflex, urine microscopic evaluation performed. 04/23/2025 5:04 PM CDT [facility] Color Yellow 04/23/2025 5:04 PM CDT [facility] Clarity Hazy(A) Clear 04/23/2025 5:04 PM CDT [facility] Specific [place] 1.020 1.005 - 1.030 04/23/2025 5:04 PM CDT [facility] pH 6.0 5.0 - 8.0 04/23/2025 5:04 PM CDT [facility] Protein 30(A) Neg/Trace mg/dL 04/23/2025 5:04 PM CDT [facility] Glucose Negative Negative mg/dL 04/23/2025 5:04 PM CDT [facility] Ketones Negative Negative mg/dL 04/23/2025 5:04 PM CDT [facility] Urobilinogen 2.0(A) <2.0 EU/dL 04/23/2025 5:04 PM T [facility] Bilirubin Small(A) Negative 04/23/2025 5:04 PM CDT [facility] Blood Trace Neg/Trace 04/23/2025 5:04 PM T [facility] Nitrite Negative Negative 04/23/2025 5:04 PM T [facility] Leukocyte Esterase Trace(A) Negative 04/23/2025 5:04 PM T [facility] Source Clean Catch 04/23/2025 5:04 PM T [facility] Urine URINE SPECIMEN COLLECTION, CLEAN CATCH / Unknown Non-blood Collection / Unknown 04/23/2025 4:23 PM CDT 04/23/2025 4:39 PM CDT us Harjit Patricio WHEEL TRUING MACHINE TENDER, DEGREE CLERK LAB_1 Final Re sult [facility] CLIA: [id number] [place] [address], [facility] documented in this encounter Visit Diagnoses Diagnosis Fever, unspecified fever cause Urinary tract infection with hematuria, site unspecified documented in this encounter Care Teams Area Relief Pilot Relationship Specialty Start [place] [address] [place] [address] PCP - General Family Practice 07/11/21 documented as of this encounter
--- OUTSIDE RECORDS SUMMARY | 2025-04-23 16:30 | XMS_ITS | Encounter Summary ---
Author Organization [facility] Address [address] [address] Care Team Providers Care Shearing Machine Tender Name Role Phone CherelleMarcos rock MD Primary Care Provider [phone] Encounter Details Date Type Department Care Team (Late st Contact Info) Description 04/23/2025 4:30 PM CDT Lab Visit [facility] [address] [place] [address] Fever, unspecified fever cause Social [...] Info) Description 05/04/2025 10:30 AM CDT Appointment [facility] [address] Dermatology [address] [place] [address] Marisol Schuler MD [address] [place] [address] 06/01/2025 3:15 PM CDT Appointment [facility] [place] [address] Cardiology [address] [place] [phone] Piero De Los Santos, DO [address] [place] [address] 06/06/2025 8:00 AM CDT Appointment [facility] [address] Urology [address] [place] [address] [place] [address] [place] [address] documented as of this encounter Procedures Procedure Name Priority Date/Time Associated Diagnosis Comments CBC AND DIFFERENTIAL PANEL STAT 04/23/2025 4:31 PM CDT Fever, unspecified fever cause COMPLETE BLOOD COUNT-W/DIFF STAT 04/23/2025 4:31 PM CDT Fever, unspecified fever cause documented in this encounter Results * (ABNORMAL) Complete Blood Count-W/Diff (04/23/2025 4:31 PM CDT) WBC 11.7(H) 3.5 - 10.5 x10(9)/L 04/23/2025 4:53 PM [facility] RBC 4.90 4.32 - 5.72 x10(12)/L 04/23/2025 4:53 PM [facility] Hemoglobin 13.8 13.5 - 17.5 g/dL 04/23/2025 4:53 PM [facility] HCT 41.7 38.8 - 50.0 % 04/23/2025 4:53 PM [facility] MCV 85.1 80.0 - 100.0 fL 04/23/2025 4:53 PM [facility] MCH 28.2 27.6 - 33.3 pg 04/23/2025 4:53 PM [facility] MCHC 33.1 31.5 - 35.2 g/dL 04/23/2025 4:53 PM [facility] RDW 13.2 11.9 - 15.5 % 04/23/2025 4:53 PM [facility] Platelets 502(H) 150 - 450 x10(9)/L 04/23/2025 4:53 PM [facility] Neutrophil Absolute 9.4(H) 1.7 - 7.0 10(9)/L 04/23/2025 4:53 PM [facility] Lymphocyte Absolute 1.1 1.0 - 4.8 10(9)/L 04/23/2025 4:53 PM [facility] Monocyte Absolute 0.9 0.2 - 0.9 10(9)/L 04/23/2025 4:53 PM [facility] Eosinophil Absolute 0.2 0.0 - 0.5 10(9)/L 04/23/2025 4:53 PM [facility] Basophil Absolute 0.0 0.0 - 0.3 10(9)/L 04/23/2025 4:53 PM CDT [facility] Immature Granulocyte % 0.4 0.0 - 0.5 % 04/23/2025 4:53 PM CDT [facility] Blood Venipuncture / Unknown 04/23/2025 4:31 PM CDT 04/23/2025 4:31 PM CDT us Harjit Patricio SOAKER, DRILL DOCTOR LAB_1 Final Re sult [facility] CLIA: [id number] [address] [place] [address], [facility] documented in this encounter Visit Diagnoses Diagnosis Fever, unspecified fever cause documented in this encounter Care Teams Shearing Machine Tender Relationship Specialty Start [place] [address] [place] [id number] PCP - General Family Practice 07/11/21 documented as of this encounter
[2025-04-29 16:56] VITALS: BP 126/81; PULSE 100; RESP 22; TEMP 37.5; O2SAT 96; BMI 40.7
[2025-04-29 17:47] LABS: PCR FLU A Negative PCR FLU A (Negative); PCR FLU B Negative PCR FLU B (Negative); PCR RSV Negative PCR RSV (Negative); SARS PCR* Negative SARS-CoV-2 (Negative)
--- NOTE | 2025-04-29 17:54 | ED.FEVER ---
HPI - Fever General Time Seen by Provider: 17:54 Date Seen: 04/29/25 Chief Complaint: Fever Stated Complaint: fever for past 10 days Time Seen by Provider: 04/29/25 17:12 Source: patient and RN notes reviewed Mode of arrival: ambulatory Limitations: no limitations History of Present Illness HPI Narrative: This 64-year-old male is coming in with ongoing fevers. He started with fevers on the afternoon April 11. Started having chills, felt run down. The he felt okay. The he had to leave work again due to a chills and fever. He had went to [facility] [employer] on April 08 but otherwise it had no travel or no known ill exposures. He went to urgent care on the and the . On the they put him on Levaquin and doxycycline for possible UTI and lung infection. He went back on the that he was continuing to have fevers. He is having temperatures up to 102.5. When he went back on the , his temp was 102.2? F. He had no cough, no sore throat, no nausea or vomiting, no dysuria. He had a white blood count that was 11,700, hemoglobin 13.8, platelets mildly elevated at 502,000, urinalysis looked abnormal but urine culture did come back negative. His chest CT without. There was 1 little small nodular area with a little ground-glass change around it that might be infectious. On April 16 he had negative Lyme serology and a negative tick panel. He had a hemoglobin A1c of 5.6% in December of this year. He has noted no headaches, no body aches. Initially when this started he was having 1 episode of night sweats tonight. He has not had that for over a week. He has had no travel, has 2 dogs and does have chickens. He has had no diarrhea, no abdominal pain but appetite has been diminished. His past medical history is significant for Simeon's esophagus, mild obstructive sleep apnea not using his CPAP right now, history of basal cell carcinoma, history of prostate cancer status post radical prostatectomy, hypertension. He had a tick panel drawn on the and was told on the when he went back to the [facility] that it was negative. At the end, patient did bring up that he has been feeling some hip pain with getting up, has no prior hip history of replacement or prior injury/surgery. He was wondering if this may have anything to do with his prior prostate surgery. MD elicited complaint: fever Related Data Allergies Allergy/AdvReac Type Severity Reaction Status Date / Time No Known Drug Allergies Allergy Verified 04/29/25 21:03 Review of Systems Status of ROS Reports: 6 or more systems reviewed and unremarkable except as noted in History and below PFSH PFS Social History Smoking Status: Never smoker How often do you have a drink containing alcohol: monthly or less AUDIT-C Alcohol total score: 1 Non-prescribed substance use: denies use Exam Const Vital Signs, click to edit/add: Vital Signs - 24 hr 04/29/25 16:56 04/29/25 18:08 04/29/25 19:09 Temperature 99.5 F 99.5 F Pulse Rate [Pulse Oximeter] 100 Respiratory Rate 22 Blood Pressure [Right Upper Arm] 126/81 Pulse Oximetry 96 93 Oxygen Delivery Method Room Air 04/29/25 19:28 04/29/25 21:30 Temperature 98.6 F Pulse Rate [Pulse Oximeter] 88 76 Respiratory Rate 18 16 Blood Pressure [Right Upper Arm] 150/85 H 137/90 H Pulse Oximetry 94 96 Oxygen Delivery Method Room Air Room Air This 64-year-old male is alert, interactive, no apparent distress. Skin visualize is wang but no rash. Sclera clear, conjugate gaze. Symmetrical facial function, speech normal. Neck thick but no adenopathy. Lungs are clear, good air entry, no wheeze or crackles, no tachypnea, no accessory muscle use. CV regular rate and rhythm, no murmur, normal S1-S2, no S3-S4. Abdomen is obese but soft, nontender, nondistended, no organomegaly, no rebound or guarding. No lower extremity edema, patient is ambulatory into the ED of his own accord. Left hip has full range of motion without any pain, no pain with internal or external movement. Documenting provider has reviewed patient's vital signs: yes Course Course ED Course: This 64-year-old male is coming in with reported fevers since the 11 of April, over 2 weeks now. He does state he remembers them saying there was some sludge in his gallbladder but he is having fevers with no nausea vomiting, no abdominal pain. His appetite is diminished. He has got no diarrhea. We will do a West Nile panel but there is no body aches, no joint pains, no headaches. Will be getting blood cultures, recheck all of his labs. Have discussed with him that we will probably consider imaging and but would like to see where some of his labs are at this time. Reevaluation(s) Time of Reevaluation #1: 19:19 Reevaluation #1: Reviewed with patient his liver enzymes are mildly elevated. AST was 67, ALT was 112 today. He did have his ALT checked on April 16 and was mildly elevated at 77. He had 1 beer about a month ago, that is probably the only bottle he has drank in the last year. He states that he remembers somewhere somebody telling him that he had had a little sludge, perhaps in his gallbladder. Reviewed with patient that we would look at an ultrasound of his liver. We did discuss that fatty liver is frequently because of these mild elevations. I doubt that he would be having acute cholecystitis for over 2 weeks with fevers and no abdominal symptoms. After further consideration in review of his labs, have decided to proceed with chest abdomen pelvis CT imaging with IV contrast looking for identifiable source of his fevers. Time of Reevaluation #2: 21:24 Reevaluation #2: Reviewed with patient that he has an intraabdominal abscess responsible for his fever, it is along the left pelvis and is likely why he is starting to have some hip pain. I did review Uptodate and will be starting cefepime and flagyl. He did receive both oral levofloxacin and doxycycline on the without improvement in his fevers. He had his prostatectomy Consultations Consultation #1: Have reviewed with hospitalist at [facility] in [facility] Dr. Armenta. We have reviewed patient's case, went over all the findings, reviewed the abscess in the length of his illness, over 2 weeks now. She accepts transfer, agrees that he is going to need IR drainage. She is aware that I have started cefepime and Flagyl. Patient is updated that he will be transferring to [facility]. Time: 21:37 Vital Signs Vital signs: Initial Vital Signs Temperature 99.5 F 04/29/25 16:56 Temperature Source Oral 04/29/25 16:56 Pulse Rate 100 04/29/25 16:56 Respiratory Rate 22 04/29/25 16:56 Blood Pressure 126/81 04/29/25 16:56 Blood Pressure Mean 96 04/29/25 16:56 Pulse Oximetry 96 04/29/25 16:56 Oxygen Delivery Method Room Air 04/29/25 16:56 Vital Signs Temperature 99.5 F 04/29/25 16:56 Pulse Rate 100 04/29/25 16:56 Respiratory Rate 22 04/29/25 16:56 Blood Pressure 126/81 04/29/25 16:56 Pulse Oximetry 96 04/29/25 16:56 Oxygen Delivery Method Room Air 04/29/25 16:56 Temperature 98.6 F 04/29/25 19:28 Pulse Rate 76 04/29/25 21:30 Respiratory Rate 16 04/29/25 21:30 Blood Pressure 137/90 H 04/29/25 21:30 Pulse Oximetry 96 04/29/25 21:30 Oxygen Delivery Method Room Air 04/29/25 21:30 Medications Administered Medications: Discontinued Medications Generic Name Dose Route Start Last Admin Trade Name Freq PRN Reason Stop Dose Admin Cefepime HCl 2 gm/ Sodium 100 mls @ 200 mls/hr 04/29/25 21:30 04/29/25 21:55 Chloride IVPB 200 mls/hr Q8H SAKINA Administration Metronidazole 500 mg in 100 mls @ 100 mls/hr 04/29/25 21:19 04/29/25 21:32 Metronidazole IVPB 100 mls/hr Q8H SAKINA Administration Sodium Chloride 1,000 mls @ 75 mls/hr 04/29/25 21:59 04/29/25 22:34 0.9 % Sodium Chloride 1000 Ml IV 75 mls/hr .[id number] SAKINA Administration MDM - Fever Lab Data Attestation: I reviewed the patient's lab results. Labs: Lab Results 04/29/25 04/29/25 04/29/25 Range/Units 16:55 18:33 19:23 WBC 11.41 H (4.50-11.00) K/uL RBC 4.55 (4.30-5.90) m/uL Hgb 12.7 L (13.5-17.5) gm/dL Hct 39.2 (37.0-53.0) % MCV 86 (80-100) fL MCH 28 (26-34) pg MCHC 32 (32-36) gm/dL RDW Coeff of Anette 13.3 (11.5-15.5) % Plt Count 608 H (140-440) K/uL Neut % (Auto) 80.9 H (42.0-72.0) % Lymph % (Auto) 8.7 L (20-44) % [place]he % (Auto) 8.5 (0.0-11.0) % Eos % (Auto) 0.9 (0.0-7.0) % Baso % (Auto) 0.4 (0.0-3.0) % Neut # (Auto) 9.20 H (1.7-7.0) K/uL Lymph # (Auto) 1.00 (0.90-2.90) K/uL Ashe # (Auto) 1.00 H (0.00-0.90) K/UL Eos # (Auto) 0.10 (0.00-0.50) K/uL Baso # (Auto) 0.00 (0.00-0.30) K/uL Abs Immat Gran (auto) 0.10 (0.00-0.30) K/uL Imm/Tot Granulo (auto) 0.6 % ESR 75 H (2-15) mm/hr Sodium 137 (135-149) mmol/L Potassium 3.7 (3.6-5.1) mmol/L Chloride 102 (96-114) mmol/L Carbon Dioxide 28 (20-32) mmol/L Anion Gap 7 (7-15) mEq/L BUN 14 (7-30) mg/dL Creatinine 1.1 (0.5-1.5) mg/dL Estimated Creat Clear 71.89 Estimated GFR 76 ml/min Glucose 112 (60-115) mg/dL Lactate 1.6 (0.5-1.9) mmol/L Calcium 8.9 (8.4-10.6) mg/dL Total Bilirubin 0.9 (0.1-1.5) mg/dL Direct Bilirubin 0.5 (0.0-0.5) mg/dL AST 67 H (12-35) U/L ALT 112 H (4-50) U/L Alkaline Phosphatase 128 (40-150) U/L C-Reactive Protein 16.8 H (0.5-1.0) mg/dL Total Protein 7.6 (6.0-8.3) g/dL Albumin 3.4 (3.3-5.0) g/dL Procalcitonin 0.18 (<0.50) ng/mL Urine Color [place] A (Yellow) Urine Appearance Slightly Cloudy A (Clear) Urine pH 5.5 (5.0-8.5) Ur Specific [place] >= 1.030 (1.000-1.030) Urine Protein 2+ A (Negative) Urine Glucose (UA) Negative (Negative) Urine Ketones Trace A (Negative) Urine Blood Negative (Negative) Urine Nitrite Negative (Negative) Urine Bilirubin 1+ A (Negative) Urine Urobilinogen 1.0 (0.2-1.0) Ur Leukocyte Esterase Negative (Negative) Urine RBC 0-2 (0-2) Urine WBC 5-10 A (0-5) Ur Squamous Epith Cells Few (None-Few) Urine Bacteria Few A (None) Urine Mucus Many A (None) SARS-CoV-2 (PCR) Negative SARS-CoV-2 (Negative) Influenza Type A (PCR) Negative PCR FLU A (Negative) Influenza Type B (PCR) Negative PCR FLU B (Negative) RSV (PCR) Negative PCR RSV (Negative) Imaging Data CT Chest/Ab/Pelvis: Attestation: I have reviewed the pertinent imaging results. Radiologist's impression: Patient: JD ROSS Facility:?[facility] Patient ID:?[id number] Site Patient ID:?[id number]. Site :?[id number] Study:?CT-Chest/Abd/Pelvis 139CC ISOVUE 370-04/29/2025 8:52:13 PM Ordering Physician:Jared Newman Final Report: INDICATION: Fever, mild transaminase. TECHNIQUE: CT chest, abdomen, and pelvis acquired with 139 cc Isovue 370 IV contrast. COMPARISON: None. FINDINGS: CHEST: Lungs and pleura: 11 mm nodule in the lingula (series 3, image 47). Minimal bibasilar atelectasis. No acute infiltrates. No pleural effusions or pneumothorax. Cardiovascular structures: Heart size is normal. Thoracic aorta and main pulmonary artery are normal in caliber. Mediastinum and dharmesh: No mass or adenopathy. Chest wall and axilla: No mass or adenopathy. Bones: No suspicious bone lesions. Unremarkable for age. ABDOMEN AND PELVIS: Liver: Unremarkable. Gallbladder and bile ducts: Unremarkable. Spleen: Unremarkable. Adrenal glands: Unremarkable. Pancreas: Unremarkable. Kidneys: 3.7 cm right superior pole cyst. 6 mm right cortical calcification. No hydronephrosis. GI tract: Tiny hiatal hernia. No evidence of obstruction. Normal appendix. Lymph nodes: Enlarged left iliac chain and pelvic sidewall lymph nodes. Vascular structures: Unremarkable. Miscellaneous: Trace free fluid in the pelvis. No free air. Tiny supraumbilical hernia. Pelvic organs: Peripherally enhancing lobulated low-density collection along the left pelvic sidewall measuring approximately 4.6 x 6.3 x 7.6 cm (TR x AP x CC). This collections extends into the adjacent left pectineus muscle. There is significant surrounding inflammatory stranding. Status post prostatectomy. Mild wall thickening of the urinary bladder. Bones: No suspicious bone lesions. Unremarkable for age. IMPRESSION: 1. Peripherally enhancing lobulated low-density collection along the left pelvic sidewall and extending into the left pectineus muscle, measuring approximately 4.6 x 6.3 x 7.6 cm. Findings may represent an abscess. Given postsurgical changes of prostatectomy, superinfected lymphocele would be a differential consideration. 2. Mild urinary bladder wall thickening, which may be reactive. Consider correlation with urinalysis to exclude cystitis. 3. Enlarged left iliac chain and pelvic sidewall lymph nodes, favored reactive. 4. 11 mm lingular nodule. Please see below for follow-up guidelines. 5. Other incidental findings as above. SOCIETY GUIDELINES - SOLID NODULES: SINGLE LOW RISK - nodule less than 6 mm: No routine follow-up. - nodule 6-8 mm: CT at 6-12 months, then consider CT at 18-24 months. - nodule greater than 8 mm: Consider CT at 3 months, PET/CT or tissue sampling. SINGLE HIGH RISK - nodule less than 6 mm: Optional CT at 12 months. - nodule 6-8 mm: CT at 6-12 months, then CT at 18-24 months. - nodule greater than 8 mm: Consider CT at 3 months, PET/CT or tissue sampling. MULTIPLE LOW RISK - nodule less than 6 mm: No routine follow-up. - nodule 6-8 mm: CT at 3-6 months, then consider CT at 18-24 months. - nodule greater than 8 mm: CT at 3-6 months, then consider CT at 18-24 months. MULTIPLE HIGH RISK - nodule less than 6 mm: Optional CT at 12 months. - nodule 6-8 mm: CT at 3-6 months, then at 18-24 months. - nodule greater than 8 mm: CT at 3-6 months, then at 18-24 months. Please note that all CT scans at this facility use dose modulation, iterative reconstruction, and/or weight-based dosing when appropriate to reduce radiation dose to as low as reasonably achievable. Dictated by Srinath Iraheta MD @ 04/29/2025 9:13:29 PM (Electronic Signature) US - abdomen: Attestation: I have reviewed the pertinent imaging results. Radiologist's impression: Patient: JD ROSS Facility:?[facility] Patient ID:?[id number] Site Patient ID:?[id number] Site :?[id number] Study:?US-Abdomen LMT [facility]-04/29/2025 8:52:36 PM Ordering Physician:Jared Newman Final Report: INDICATION: Fever, elevated liver enzymes TECHNIQUE: Ultrasound abdomen limited. Sonographic images of the right upper quadrant were obtained using hoskins-scale and color Doppler images. COMPARISON: None. FINDINGS: Evaluation limited by poor acoustic windows due to bowel gas. Liver: Increased in echogenicity, likely reflecting fatty infiltration. No suspicious masses. No intrahepatic biliary ductal dilatation. Gallbladder: No stones or sludge. Normal wall thickness. No pericholecystic fluid. Negative sonographic Sharma`s sign. Common bile duct: Not visualized. Pancreas: Not visualized, obscured by bowel gas. Right kidney: Normal in size. Normal echotexture and cortex. Superior pole cyst measuring 3.6 x 3.3 x 3.8 cm. Inferior pole echogenic focus measuring 1.7 x 0.6 x 1.3 cm, representing cortical calcification versus nephrolithiasis. No hydronephrosis. Vasculature: Proximal abdominal aorta and IVC are unremarkable. Main portal vein is patent with hepatopetal flow. IMPRESSION: 1. Hepatic steatosis. 2. Nonvisualization of the common bile duct and pancreas. 3. Right renal cyst and cortical calcification versus nephrolithiasis. No hydronephrosis. Dictated by Srinath Iraheta MD @ 04/29/2025 9:17:15 PM (Electronic Signature) Discharge Plan Discharge Clinical Impression: Intra-abdominal abscess Patient Disposition: [facility] Discharge Location: [facility] Condition: Stable
[2025-04-29 18:08] VITALS: O2SAT 93
[2025-04-29 18:41] LABS: Lactate* 1.6 mmol/L (0.5-1.9)
[2025-04-29 18:45] LABS: Hematocrit 39.2 % (37.0-53.0); Hemoglobin* 12.7 gm/dL (13.5-17.5); Immature Granulocytes Pct Auto 0.6 %; Mean Corpuscular HGB Conc 32 gm/dL (32-36); Mean Corpuscular Hemoglobin 28 pg (26-34); Mean Corpuscular Volume 86 fL (80-100); RDW Coefficient of Variation % 13.3 % (11.5-15.5); Red Blood Count 4.55 m/uL (4.30-5.90); White Blood Count* 11.41 K/uL (4.50-11.00)
[2025-04-29 18:48] LABS: Immature Granulocytes Abs Auto 0.10 K/uL (0.00-0.30); Lymphocytes Absolute Auto 1.00 K/uL (0.90-2.90); Slide Review Reflex No
--- OUTSIDE RECORDS SUMMARY | 2025-04-29 18:51 | XMS_ITS | Clinical Summary ---
Author Organization [facility] Address [address] [place] [address] Care Team Providers Care Flight Security Specialist Name Role Phone CherelleMarcos MD Primary Care Provider [phone] Source Comments You are receiving this document as you are listed as the primary care provider,follow-up provider, or the patient has been referred to you for consultation.This is in compliance with the Medicare and[facility] EHR Incentive Program,which states Providers who transition their patient to another setting of careor provider of care or refers their patient to another provider of care shouldprovide summary care record for each transition of care or referral. [facility] Allergies No known active allergies Medications omeprazole (PRILOSEC) 20 MG capsuleIndication s:Simeon's esophagus without dysplasia Take 1 Capsule (20 mg) by mouth two times a day. Take 1 hour before a meal. 180 Capsule 3 3 Active amLODIPine (NORVASC) 5 MG tabletIndications :Essential hypertension (HRC) Take 1 Tablet (5 mg) by mouth daily. 90 Tablet 3 5 01/10/20 26 Active losartan (COZAAR) 25 MG tabletIndications :Essential hypertension (HRC) Take 1 Tablet (25 mg) by mouth daily. 90 Tablet 3 5 01/10/20 26 Active atorvastatin (LIPITOR) 10 MG tabletIndications :Dyslipidemia (HRC) Take 1 Tablet (10 mg) by mouth daily. 90 Tablet 3 5 01/10/20 Active doxycycline hyclate (VIBRA-TABS) 100 MG tablet Take 1 Tablet (100 mg) by mouth two times a day for 10 days. 20 Tablet 5 04/26/20 25 cefdinir (OMNICEF) 300 MG capsule Take 1 Capsule (300 mg) by mouth two times a day for 10 days. 20 Capsule 5 04/26/20 25 levoFLOXacin (LEVAQUIN) 750 MG tablet Take 1 Tablet (750 mg) by mouth daily for 5 days. 5 Tablet 5 04/28/20 25 Active Problems Problem Noted Date Diagnosed Date Erectile dysfunction following radical prostatec yang 02/27/2025 Stress incontinence (female) (male) 02/27/2025 History of dysplastic nevus 03/31/2024 Overview (03/31/2024): 03/28/2024 Right Upper Arm - Posterior, Junctional melanocytic nevus with mild dysplasia. 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 04/14/17 EGD by Devin Alfonso MD: Established long-segment Simeon s disease stage C8-M8 per [place] criteria. Small hiatal hernia. Multiple fundic gland polyps. Erythematous to adenopathy, otherwise normal exam. Prilosec 20 mg BID indefinitely. Repeat in 2025 Mild obstructive sleep apnea 09/24/2005 Overview (09/29/2024): Setting: APAP 5-15 cmH20 Supplied by: [facility] PSG done: 10/30/04 AHI 10 (eds) RDI 18 Lowest O2 Sat: 79% [place] Dyslipidemia 09/24/2005 Overview (07/21/2017): Congenital malformation of intestine, unspecifie d Resolved Problems Problem Noted Date Diagnosed Date Resolved Date Basal cell carcinoma (BCC) of abdominal wall 2 02/27/2025 Gastric ulcer with hemorrhage 06/04/2011 07/28/2017 Overview (04/02/2016): 1986 Encounters Date Type Department Care Team Description 04/25/2025 Results Follow-Up [place] [address] [facility] [address] [place] [address] [phone] Judith Delgado MD 04/24/2025 [facility] [address] [facility] [place] [address] Mychart, Generic Provider 04/23/2025 4:30 PM CDT Lab Visit [facility] [address] [place] [phone] Fever, unspecified fever cause 04/23/2025 4:20 PM CDT Office Visit [place] [address] [facility] [address] [place] [phone] Harjit Patricio, TELEPHONE INSTALLER, ACTING SECTION CHIEF Fever, unspecified fever cause; Urinary tract infection with hematuria, site unspecified 04/16/2025 3:00 PM CDT [place] [address] [place] [address] Jarek Boogie PA-C Abnormal CXR 04/16/2025 2:00 PM CDT Ancillary Procedure [facility] [address] [place] [phone] Jarek Boogie PA-C Fever, unspecified fever cause 04/16/2025 1:40 PM CDT Lab Visit [facility] [address] [place] [address] [phone] Fever, unspecified fever cause 04/16/2025 12:40 PM CDT Office Visit [place] [address] [facility] [address] [place] [phone] Jarek Boogie, WILFREDO Fever, unspecified fever cause; Abnormal CXR; Urinary tract infection with hematuria, site unspecified; Pneumonia of left lower lobe due to infectious organism; Dilatation of thoracic aorta (HRC); Gallbladder sludge 03/01/2025 11:30 AM CDT Office Visit [facility] [address] Urology [address] [place] [phone] Мария Bangura MD Prostate cancer (HRC) (Primary Dx) 02/22/2025 7:30 AM CDT Lab Visit [address] [phone] Elevated PSA 02/02/2025 1:00 PM CDT Nursing Visit Nursing at [address] [phone] Blood pressure check (Primary Dx) 02/02/2025 12:40 PM CDT Lab Visit [address] [phone] Essential hypertension (HRC) from Last 3 Months Immunizations Immunization Administration Dates Next Due Flu Vac Preserv Free (3+yrs) 08/10/2012, 06/04/2011,05/19/2010,2005 H1n1 Miv Sanofi 3+ Yr (Injected) 10/14/2009 Influenza IIV4 (Quadrivalent ) 0.5mL (35752) 07/13/2020,06/30/2019,05/07/2018,2016,07/08/2016,09/18/2015,06/13/2014 Pfizer Monovalent 12+ Purple Top 06/09/2021,04/30 TB Skin Test (PPD) 07/09/2009 TDAP (BOOSTRIX) 06/15/2009 Td 09/17/2004 Td (7+ yrs) 07/08/2016 Zoster RZV (Shingrix) 01/17/2021,07/13/2020 Family History Medical History Relation Name Comments Cancer Father Josh Cancer, Lung Father Josh Stroke Mother Vianey Relation Name Status Comments Father Josh Mother Vianey Social History Tobacco Use Types Packs/Day Years Used Date Smoking Tobacco: Never Smokeless Tobacco: Never Tobacco Cessation:Counseling Given: Not Answered Alcohol Use Standard Drinks/Week Comments Not Currently [...] file Not on file Not on file Last Filed Vital Signs Vital Sign Reading Time Taken Comments Blood Pressure 133/77 04/23/2025 3:51 PM CDT Pulse 95 04/23/2025 3:51 PM CDT Temperature 39 C (102.2 F) 04/23/2025 3:51 PM CDT Respiratory Rate 18 04/23/2025 3:51 PM CDT Oxygen Saturation 96% 04/23/2025 3:51 PM CDT Inhaled Oxygen Concentration - - Weight 133.1 kg (293 lb 8 oz) 01/09/2025 11:10 A M CDT Height 177.5 cm (5' 9.88) 01/09/2025 11:10 AM C DT Body Mass Index 42.26 01/09/2025 11:10 AM CDT Plan of Treatment Upcoming Encounters Date Type Department Care Team (Late st Contact Info) Description 05/04/2025 10:30 AM CDT Appointment [facility] [address] Dermatology [address] [place] [address] Marisol Schuler MD [address] [place], [place] [phone] 06/01/2025 3:15 PM CDT Appointment [facility] [place] [address] Cardiology [address] [place] [phone] Piero De Los Santos DO [address] [place], [place] [address] 06/06/2025 8:00 AM CDT Appointment [facility] [address] Urology [address] [place] [phone] [place] [address] [place], [place] [phone] Health Maintenance Due Date Last Done Comments Hep C Screening (Preventive Services) 1960 Pneumococcal Vaccine 50+ Yrs (1 of 1 - PCV) 2012 RSV Vaccine (1 - Risk 60-74 years 1-dose series) 2022 COVID-19 Vaccine ( - season) 2024 06/09/2021, 05/15/2021 Influenza Vaccine (#1) 2025 0, 06/30/2019, 05/07/2018, Additional history exists Adult Preventive Visit 01/09/2026 5, 12/28/2023, 10/28/2022, Additional history exists DTaP/Tdap/Td Vaccine (3 - Tdap) 07/08/2026 07/08/2016, 06/15/2009, 09/17/2004 Diabetes Screening- (based on age and BMI) 01/10/2028 01/09/2025, 02/02/2024, 11/03/2022, Additional history exists Colonoscopy 04/27/2028 04/27/2023, 08/31 (Completed) Cholesterol 01/09/2030 01/09/2025, 12/2023, 02/10/2023, Additional history exists HIV Screening (Preventive Services) Completed 04/21/2010, 07/12/2009 Zoster/Shingles Vaccine Completed 01/17/2021, 07/13 PSA Screening Discussion Discontinued 025, 11/13/2024, 08/11/2024, Additional history exists HepA Vaccine Aged Out No longer eligi ble based on patient's age to complete this topic HepB Vaccine Aged Out No longer eligi ble based on patient's age to complete this topic Hib Vaccine Aged Out No longer eligi ble based on patient's age to complete this topic IPV (Polio) Vaccine Aged Out No longe r eligible based on patient's age to complete this topic MCV4 Vaccine Aged Out No longer eligi ble based on patient's age to complete this topic Meningococcal B Vaccine Aged Out No l onger eligible based on patient's age to complete this topic Procedures Procedure Name Priority Date/Time Associated Diagnosis Comments COMPLETE BLOOD COUNT-W/DIFF STAT 04/23/2025 4:31 PM CDT Fever, unspecified fever cause CBC AND DIFFERENTIAL PANEL STAT 04/23/2025 4:31 PM CDT Fever, unspecified fever cause URINE CULTURE Routine 04/23/2025 4:23 PM CDT Fever, unspecified fever cause UA MICRO STAT 04/23/2025 4:23 PM CDT Fever, unspecified fever cause URINALYSIS ROUTINE, MICRO/CULTURE IF POS STAT 04/23/2025 4:23 PM CDT Fever, unspecified fever cause CT CHEST WO IV CONT STAT 04/16/2025 3 :03 PM CDT Abnormal CXR XR CHEST 2 VIEWS STAT 04/16/2025 2:02 PM CDT Fever, unspecified fever cause UA MICRO STAT 04/16/2025 1:44 PM CDT Fever, unspecified fever cause UA WITH MICROSCOPIC STAT 04/16/2025 1 :44 PM CDT Fever, unspecified fever cause [place] DISEASE PANEL BY PCR Routine 04/16/2025 1:34 PM CDT Fever, unspecified fever cause LYME ANTIBODY (REFLEX TO LYME CONFIRMATORY PANEL) Routine 04/16/2025 1:34 PM CDT Fever, unspecified fever cause COMPLETE BLOOD COUNT-W/DIFF STAT 04/16/2025 1:34 PM CDT Fever, unspecified fever cause ALT (SGPT) STAT 04/16/2025 1:34 PM CDT Fever, unspecified fever cause CBC AND DIFFERENTIAL PANEL STAT 04/16/2025 1:34 PM CDT Fever, unspecified fever cause PROSTATIC SPECIFIC ANTIGEN (DIAGNOSTIC F/U) Routine 02/22/2025 7:34 AM CDT Elevated PSA POTASSIUM Routine 02/02/2025 12:32 PM CDT Essential hypertension (HRC) CREATININE / GFR Routine 02/02/2025 12:3 2 PM CDT Essential hypertension (HRC) HGB A1C Routine 01/09/2025 11:52 AM CDT Diabetes mellitus screening LIPID PANEL & DIRECT LDL (IF NEEDED) Routine 01/09/2025 11:52 AM CDT Lipid screening ENDOSCOPY, COLON, SCREENING/DIAGNOSTIC Routine 04/27/2023 2:51 PM CDT Screening for colon cancer HIV ANTIBODY Routine 04/21/2010 8:41 AM CDT from Last 3 Months or Most Recently Relevant to Health Maintenance Results * (ABNORMAL) Complete Blood Count-W/Diff (04/23/2025 4:31 PM CDT) Only the most recent of2 resultswithin the time period is included. WBC 11.7(H) 3.5 - 10.5 x10(9)/L 04/23/2025 4:53 PM CDT [facility] RBC 4.90 4.32 - 5.72 x10(12)/L 04/23/2025 4:53 PM T [facility] Hemoglobin 13.8 13.5 - 17.5 g/dL 04/23/2025 4:53 PM T [facility] HCT 41.7 38.8 - 50.0 % 04/23/2025 4:53 PM T [facility] MCV 85.1 80.0 - 100.0 fL 04/23/2025 4:53 PM T [facility] MCH 28.2 27.6 - 33.3 pg 04/23/2025 4:53 PM T [facility] MCHC 33.1 31.5 - 35.2 g/dL 04/23/2025 4:53 PM T [facility] RDW 13.2 11.9 - 15.5 % 04/23/2025 4:53 PM T [facility] Platelets 502(H) 150 - 450 x10(9)/L 04/23/2025 4:53 PM CDT [facility] Neutrophil Absolute 9.4(H) 1.7 - 7.0 10(9)/L 04/23/2025 4:53 PM CDT [facility] Lymphocyte Absolute 1.1 1.0 - 4.8 10(9)/L 04/23/2025 4:53 PM CDT [facility] Monocyte Absolute 0.9 0.2 - 0.9 10(9)/L 04/23/2025 4:53 PM CDT [facility] Eosinophil Absolute 0.2 0.0 - 0.5 10(9)/L 04/23/2025 4:53 PM CDT [facility] Basophil Absolute 0.0 0.0 - 0.3 10(9)/L 04/23/2025 4:53 PM CDT [facility] Immature Granulocyte % 0.4 0.0 - 0.5 % 04/23/2025 4:53 PM CDT [facility] Blood Venipuncture / Unknown 04/23/2025 4:31 PM CDT 04/23/2025 4:31 PM CDT us Harjit Patricio APRN, CNP LAB_1 Final Re sult Performing Organization Address [facility] Co de Phone Number [facility] CLIA: [id number] [place] [address], [facility] * Urine Culture - Collect in Lab (04/23/2025 4:23 PM CDT) Urine Culture No Growth After 1 Day 04/24/2025 8:32 PM CDT [facility] Urine URINE SPECIMEN COLLECTION, CLEAN CATCH / Unknown Non-blood Collection / Unknown 04/23/2025 4:23 PM CDT 04/23/2025 4:39 PM CDT Harjit Patricio APRN, ELSA LAB_1 Final Re sult Performing Organization Address [facility]/ZIP Co de Phone Number [facility] CLIA: [id number] [address] [place] [address] * (ABNORMAL) Urinalysis Routine, Micro/Culture if Pos: Clean Catch (04/23/2025 4:23 PM CDT) Urine Microscopic Evaluation Reflex Order Comment Urinalysis results meet criteria for reflex, urine microscopic evaluation performed. 04/23/2025 5:04 PM CDT [facility] Color Yellow 04/23/2025 5:04 PM CDT [facility] Clarity Hazy(A) Clear 04/23/2025 5:04 PM CDT [facility] Specific [place] 1.020 1.005 - 1.030 04/23/2025 5:04 PM [facility] pH 6.0 5.0 - 8.0 04/23/2025 5:04 PM [facility] Protein 30(A) Neg/Trace mg/dL 04/23/2025 5:04 PM T [facility] Glucose Negative Negative mg/dL 04/23/2025 5:04 PM T [facility] Ketones Negative Negative mg/dL 04/23/2025 5:04 PM T [facility] Urobilinogen 2.0(A) <2.0 EU/dL 04/23/2025 5:04 PM T [facility] Bilirubin Small(A) Negative 04/23/2025 5:04 PM T [facility] Blood Trace Neg/Trace 04/23/2025 5:04 PM [facility] Nitrite Negative Negative 04/23/2025 5:04 PM T [facility] Leukocyte Esterase Trace(A) Negative 04/23/2025 5:04 PM T [facility] Source Clean Catch 04/23/2025 5:04 PM [facility] Urine URINE SPECIMEN COLLECTION, CLEAN CATCH / Unknown Non-blood Collection / Unknown 04/23/2025 4:23 PM CDT 04/23/2025 4:39 PM CDT us Harjit Patricio TELEPHONE INSTALLER, ACTING SECTION CHIEF LAB_1 Final Re sult [facility] CLIA: [id number] [address] [place] [address] * (ABNORMAL) Urine Microscopic Evaluation: Clean Catch (04/23/2025 4:23 PM CDT) Only the most recent of2 resultswithin the time period is included. Urine Culture Comment Urinalysis results do not meet criteria for urine culture reflex. 04/23/2025 5:03 PM CDT [facility] Red Blood Cells 0-3 0 - 3 /HPF 04/23/2025 5:03 PM T [facility] White Blood Cells 6-9(A) 0 - 5 /HPF 04/23/2025 5:03 PM CDT [facility] Bacteria Moderate(A) None Seen /HPF 04/23/2025 5:03 PM CDT [facility] Squamous Epithelial Cells Few None Seen, Occasiona l, Few /HPF 04/23/2025 5:03 PM CDT [facility] Mucus Present(A) None Seen /HPF 04/23/2025 5:03 PM CDT [facility] Urine URINE SPECIMEN COLLECTION, CLEAN CATCH / Unknown Non-blood Collection / Unknown 04/23/2025 4:23 PM CDT 04/23/2025 4:39 PM CDT us Harjit Patricio TELEPHONE INSTALLER, ACTING SECTION CHIEF LAB_1 Final Re sult [facility] CLIA: [id number] [address] [place] [address], [facility] * CT Chest WO IV Cont (04/16/2025 [...] Signed by: Edgardo Strong 04/16/2025 2:09 PM us Jarek Boogie PA-C RAD GD Final Resul t * (ABNORMAL) UA with Microscopic: Clean Catch (04/16/2025 1:44 PM CDT) Color Yellow 04/16/2025 2:10 PM [facility] Clarity Clear Clear 04/16/2025 2:10 PM T [facility] Specific [place] 1.025 1.005 - 1.030 04/16/2025 2:10 PM [facility] pH 6.0 5.0 - 8.0 04/16/2025 2:10 PM T [facility] Protein 30(A) Neg/Trace mg/dL 04/16/2025 2:10 PM T [facility] Glucose Negative Negative mg/dL 04/16/2025 2:10 PM T [facility] Ketones Negative Negative mg/dL 04/16/2025 2:10 PM T [facility] Urobilinogen 4.0(A) <2.0 EU/dL 04/16/2025 2:10 PM [facility] Bilirubin Small(A) Negative 04/16/2025 2:10 PM T [facility] Blood Small(A) Neg/Trace 04/16/2025 2:10 PM CDT [facility] Nitrite Negative Negative 04/16/2025 2:10 PM CDT [facility] Leukocyte Esterase Trace(A) Negative 04/16/2025 2:10 PM CDT [facility] Source Clean Catch 04/16/2025 2:10 PM CDT [facility] Urine URINE SPECIMEN COLLECTION, CLEAN CATCH / Unknown Non-blood Collection / Unknown 04/16/2025 1:44 PM CDT 04/16/2025 1:44 PM CDT Jarek JORGENSEN-C LAB_1 Final Resul t Performing Organization Address City/[facility]/ZIP Co de Phone Number [facility] CLIA: [id number] [address] [place] [address] * Tickborne Disease Panel by PCR (04/16/2025 1:34 PM CDT) Anaplasma Phagocytophilum Not Detected Not Detected 04/17/2025 12:33 PM CDT [facility] Ehrlicia Species Not Detected Not Detected 04/17/2025 12:33 PM CDT [facility] Babesia Species Not Detected Not Detected 04/17/2025 12:33 PM CDT [facility] Blood VENOUS BLOOD SPECIMEN / Unknown Venipuncture / Unknown 04/16/2025 1:34 PM CDT 04/16/2025 1:34 PM CDT Narrative [facility] - 04/17/2025 12:33 PM CDT Test performed by real-time PCR. This test was developed, and its performance characteristics determined by [facility] [employer]. It has not been cleared or approved by the [place] Food and Drug Administration. Jarek Boogie PA-C LAB_1 Final Resul t Performing Organization Address [facility]/ZIP Co de Phone Number [facility] CLIA: [id number] [address] [place] [address] * Lyme Antibody (Reflex to Lyme Confirmatory Panel) (04/16/2025 1:34 PM CDT) Lyme Disease Serology Negative Negative 04/17/2025 9:13 AM CDT [facility] Comment:The magnitude of the measured result, above the cutoff, is not indicative of the amount of antibody present. Blood Venipuncture / Unknown 04/16/2025 1:34 PM CDT 04/16/2025 1:34 PM CDT Jarek Boogie PA-C LAB_1 Final Resul t Performing Organization Address City/[facility] Co de Phone Number [facility] CLIA: [id number] [address] * (ABNORMAL) ALT (SGPT) (04/16/2025 1:34 PM CDT) [facility] ALT (SGPT) 77(H) 0 - 55 U/L 04/16/2025 2:35 PM CDT [facility] Blood Venipuncture / Unknown 04/16/2025 1:34 PM CDT 04/16/2025 1:34 PM CDT Jarek Varsha Varsha JORGENSEN LAB_1 Final Resul t Performing Organization Address [facility] de Phone Number [facility] CLIA: [id number] [address] [place] [address] * Prostatic Specific Antigen (Diagnostic F/U) - Due: 3 months (02/22/2025 7:34 AM CDT) Pathologist [facility] Prostatic Specific Antigen 0.3 <=4.5 ng/mL 02/22/2025 12:40 PM CDT [facility] Comment:When the PSA value i s below the age-specific reference value but within 0.5 ng/mL, consider referral to urology. Blood Venipuncture / Unknown 02/22/2025 7:34 AM CDT 02/22/2025 7:34 AM CDT Narrative [facility] - 02/22/2025 12:40 PM CDT [facility] PSA Chemiluminescent immunoassay is used. Results obtained with different test methods or kits cannot be used interchangeably. Мария Bangura MD LAB_1 Final Result Performing Organization Address City/[facility]/ZIP Co de Phone Number [facility] [address] * Creatinine / GFR (02/02/2025 12:32 PM CDT) Creatinine 1.10 0.73 - 1.18 mg/dL 02/02/2025 3:41 PM CDT [facility] GFR, Estimated >60 >60 mL/min/1.7 3m2 02/02/2025 3:41 PM CDT [facility] Blood Venipuncture / Unknown 02/02/2025 12:32 PM CDT 02/02/2025 12:32 PM CDT Marcos Villarreal MD LAB_1 Final Result Performing Organization Address [facility] Co de Phone Number [facility] [address] [place] [address] * Potassium (02/02/2025 12:32 PM CDT) Pathologist [facility] Potassium 4.1 3.5 - 5.1 mmol/L 02/02/2025 3:41 PM CDT [facility] Blood Venipuncture / Unknown 02/02/2025 12:32 PM CDT 02/02/2025 12:32 PM CDT Marcos Villarreal MD LAB_1 Final Result Performing Organization Address [facility] de Phone Number [facility] [address] [place] [address] * (ABNORMAL) Lipid Panel & Direct LDL (if Needed) (01/09/2025 11:52 AM CDT) Cholesterol 173 0 - 199 mg/dL 01/09/2025 5:18 PM CDT [facility] Triglyceride 130 <=149 mg/dL 01/09/2025 5:18 PM [facility] HDL Cholesterol 36(L) >=40 mg/dL 5:18 PM [facility] LDL, Calculated 111 <130 mg/dL 5:18 PM [facility] Non HDL Chol, Calculated 137 <=159 mg/dL 01/09/2025 5:18 PM [facility] Cholesterol/HDL Ratio 4.8 <=5.0 01/09/2025 5:18 PM [facility] Hours Fasting 0.0 8 - 12 Hours 01/09/2025 5:18 PM [facility] Blood Venipuncture / Unknown 01/09/2025 11:52 AM CDT 01/09/2025 11:52 AM CDT Marcos Villarreal MD LAB_1 Final Result Performing Organization Address [facility] de Phone Number [facility] [address] [place] [address] * Hgb A1C (01/09/2025 11:52 AM CDT) Hemoglobin A1C 5.6 <=5.6 % 01/09/2025 9:26 PM T [facility] Estimated Average Glucose (Calc) 114 < 117 mg/dL 01/09/2025 9:26 PM [facility] Comment:Estimated average gl ucose (eAG) converts A1c into glucose units (mg/dL) and estimates average glucose over the past approximately 3 months. The eAG reference interval (<117 mg/dL) corresponds to an A1c of <5.7%. Blood Venipuncture / Unknown 01/09/2025 11:52 AM CDT 01/09/2025 11:52 AM CDT us Marcos Villarreal MD LAB_1 Final Result Performing Organization Address City/[facility]/ZIP Co de Phone Number [facility] [id number] [place] [address] * Endoscopy, Colon, Screening/Diagnostic (04/27/2023 2:51 PM CDT) Anatomical Region Laterality Modality Other 04/27/2023 2:51 PM CDT Narrative 04/27/2023 2:51 PM CDT Patient Name: Familia Lawrence Procedure Date: 04/27/2023 2:51 PM Date of : 1960 Admit Type: Outpatient Age: 62 Gender: Male Note Status: Finalized Attending MD: Marcos Orellana MD Procedure: Colonoscopy Indications: Screening for colorectal malignant neoplasm, Last colonoscopy: August 2012 Providers: Marcos Orellana MD, Jaylyn De La Paz Referring MD: Marcos Villarreal Medicines: Fentanyl 25 micrograms IV, Midazolam 0.5 mg IV, Residual Sedation present (100,2.5) from immediate prior EGD. Complications: No immediate complications. Procedure: After I obtained informed consent, the scope was passed under direct vision. Throughout the procedure, the patient's blood pressure, pulse, and oxygen saturations were monitored continuously. The [id number] was introduced through the anus and advanced to the terminal ileum, with identification of the appendiceal orifice and IC valve. The patient tolerated the procedure well. The quality of the bowel preparation was good. Anatomical landmarks were photographed. The colonoscopy was performed without difficulty. Findings: The terminal ileum appeared normal. The transverse colon was moderately redundant. A 2 mm polyp was found in the hepatic flexure. The polyp was sessile. The polyp was removed with a cold snare. Resection and retrieval were complete. A 5 mm polyp was found in the hepatic flexure. The polyp was flat. The polyp was removed with a cold snare. Resection and retrieval were complete. The exam was otherwise without abnormality. Moderate Sedation: Moderate (conscious) sedation was administered by the endoscopy nurse and supervised by the endoscopist. The patient's oxygen saturation, heart rate, blood pressure and response to care were monitored. Total physician intraservice time was 10 minutes. This time is the duration from the initial medication administration until the typesetter apprentice assists with initial maneuvers (biopsy / polypectomy / etc.), or if no maneuvers are performed, until the endoscopist leaves the room. Impression: - The examined portion of the ileum was normal. - Redundant colon. - One 2 mm polyp at the hepatic flexure, removed with a cold snare. Resected and retrieved. - One 5 mm polyp at the hepatic flexure, removed with a cold snare. Resected and retrieved. - The examination was otherwise normal. Recommendation: - Await pathology results. - Repeat colonoscopy in 5-10 years for surveillance based on pathology results. Procedure Code(s): --- Professional --- 28080, Colonoscopy, flexible; with removal of tumor(s), polyp(s), or other lesion(s) by snare technique G0500, Moderate sedation services provided by the same physician or other qualified health career technical supervisor performing a gastrointestinal endoscopic service that sedation supports, requiring the presence of an independent trained observer to assist in the monitoring of the patient's level of consciousness and physiological status; initial 15 minutes of intra-service time; patient age 5 years or older (additional time may be reported with 06220, as appropriate) Diagnosis Code(s): --- Professional --- Z12.11, Encounter for screening for malignant neoplasm of colon K63.5, Polyp of colon Q43.8, Other specified congenital malformations of intestine CPT copyright 2020 [employer]. All rights reserved. The codes documented in this report are preliminary and upon pre coder review may be revised to meet current compliance requirements. Marcos Orellana MD 04/27/2023 3:20:04 PM This document has been electronically signed. Number of Addenda: 0 Note Initiated On: 04/27/2023 2:51 PM Endoscopy Report Procedure Note Marcos Orellana MD - 04/27/2023 Patient Name: Familia Lawrence Procedure Date: 04/27/2023 2:51 PM Date of : 1960 Admit Type: Outpatient Age: 62 Gender: Male Note Status: Finalized Attending MD: Marcos Orellana MD Procedure: Colonoscopy Indications: Screening for colorectal malignant neoplasm, Last colonoscopy: August 2012 Providers: Marcos Orellana MD, Jaylyn Anglin MD: Marcos Villarreal Medicines: Fentanyl 25 micrograms IV, Midazolam 0.5 mg IV, Residual Sedation present (100,2.5) from immediate prior EGD. Complications: No immediate complications. Procedure: After I obtained informed consent, the scope was passed under direct vision. Throughout the procedure, the patient's blood pressure, pulse, and oxygen saturations were monitored continuously. The [id number] was introduced through the anus and advanced to the terminal ileum, with identification of the appendiceal orifice and IC valve. The patient tolerated the procedure well. The quality of the bowel preparation was good. Anatomical landmarks were photographed. The colonoscopy was performed without difficulty. Findings: The terminal ileum appeared normal. The transverse colon was moderately redundant. A 2 mm polyp was found in the hepatic flexure. The polyp was sessile. The polyp was removed with a cold snare. Resection and retrieval were complete. A 5 mm polyp was found in the hepatic flexure. The polyp was flat. The polyp was removed with a cold snare. Resection and retrieval were complete. The exam was otherwise without abnormality. Moderate Sedation: Moderate (conscious) sedation was administered by the endoscopy nurse and supervised by the endoscopist. The patient's oxygen saturation, heart rate, blood pressure and response to care were monitored. Total physician intraservice time was 10 minutes. This time is the duration from the initial medication administration until the typesetter apprentice assists with initial maneuvers (biopsy / polypectomy / etc.), or if no maneuvers are performed, until the endoscopist leaves the room. Impression: - The examined portion of the ileum was normal. - Redundant colon. - One 2 mm polyp at the hepatic flexure, removed with a cold snare. Resected and retrieved. - One 5 mm polyp at the hepatic flexure, removed with a cold snare. Resected and retrieved. - The examination was otherwise normal. Recommendation: - Await pathology results. - Repeat colonoscopy in 5-10 years for surveillance based on pathology results. Procedure Code(s): --- Professional --- 05726, Colonoscopy, flexible; with removal of tumor(s), polyp(s), or other lesion(s) by snare technique G0500, Moderate sedation services provided by the same physician or other qualified health career technical supervisor performing a gastrointestinal endoscopic service that sedation supports, requiring the presence of an independent trained observer to assist in the monitoring of the patient's level of consciousness and physiological status; initial 15 minutes of intra-service time; patient age 5 years or older (additional time may be reported with 63324, as appropriate) Diagnosis Code(s): --- Professional --- Z12.11, Encounter for screening for malignant neoplasm of colon K63.5, Polyp of colon Q43.8, Other specified congenital malformations of intestine CPT copyright 2020 [employer]. All rights reserved. The codes documented in this report are preliminary and upon pre coder review may be revised to meet current compliance requirements. Marcos Orellana MD 04/27/2023 3:20:04 PM This document has been electronically signed. Number of Addenda: 0 Note Initiated On: 04/27/2023 2:51 PM Endoscopy Report us Marcos Villarreal MD ET GI PROCEDURE ORDERABLES Fin al Result * HIV ANTIBODY (04/21/2010 8:41 AM CDT) HIV 1/HIV 2 Non-React No normal range HP CONVERSION 04/21/2010 8:41 AM CDT us Gregorio Vogel MD LAB_1 Final R esult HP CONVERSION from Last 3 Months or Most Recently Relevant to Health Maintenance Insurance [facility] OUT OF STATE BCBS OUT OF STATE Advance Directives * Full Code (Latest Code Status on File) Date Activated Date Inactivated Comments 02/18/2024 6:23 PM 02/19/2024 1:17 PM Care Teams Flight Security Specialist Relationship Specialty [place] [address] [place] [address] PCP - General Family Practice 07/11/21
--- OUTSIDE RECORDS SUMMARY | 2025-04-29 18:51 | XMS_ITS ---
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 Small hiatal hernia. Multiple fundic gland polyps. Erythematous to adenopathy, otherwise normal exam. Prilosec 20 mg BID indefinitely. Repeat in 2025 Mild obstructive sleep apnea 09/24/2005 Overview (09/29/2024): Setting: APAP 5-15 cmH20 Supplied by: [facility] PSG done: 10/30/04 AHI 10 (eds) RDI 18 Lowest O2 Sat: 79% Alma Rosa/[place] Dyslipidemia 09/24/2005 Overview (07/21/2017): Congenital malformation of intestine, unspecifie d Current Treatment and Therapy Plans No current plan information found. Past Treatment and Therapy Plans No past plan information found. Lifetime Dose Tracking * Chemical Lifetime Dose Automatic Entry Manual Entr y Fluoro Time 1.8 minutes 1.8 minutes 0 minutes Total Air Kerma 117.54 mGy 117.54 mGy 0 mGy Resolved Problems Problem Noted Date Diagnosed Date Resolved Date Basal cell carcinoma (BCC) of abdominal wall 2 02/27/2025 Gastric ulcer with hemorrhage 06/04/2011 07/28/2017 Overview (04/02/2016): 1987
--- OUTSIDE RECORDS SUMMARY | 2025-04-29 18:51 | XMS_ITS | Encounter Summary ---
Author Organization [employer] Address [address], [place] [address] Care Team Providers Care Cable Splicer Assistant Name Role Phone Marcos Villarreal MD Primary Care Provider [phone] Encounter Details Date Type Department Care Team (Late st Contact Info) Description 04/25/2025 Results Follow-Up [facility] [address] [place] [address] Judith Delgado MD [address] [place], [place] [id number] Social History Tobacco Use Types Packs/Day Years [...] Appointment [facility] [address] D[address] [place] [address] Marisol Schuler MD [address] [place] [address] 06/01/2025 3:15 PM CDT Appointment [facility] [place] [address] Cardiology [address] [place] [phone] Piero De Los Santos DO [address] [place] [address] 06/06/2025 8:00 AM CDT Appointment [facility] [place] [address] Urology [address] [place] [phone] [place] [address] [place] [address] documented as of this encounter Visit Diagnoses Not on filedocumented in this encounter Care Teams Cable Splicer Assistant Relationship Specialty [place] [address] [place] [address] PCP - General Family Practice 07/11/21 documented as of this encounter
--- OUTSIDE RECORDS SUMMARY | 2025-04-29 18:52 | XMS_ITS | Clinical Summary ---
Author Organization [employer] [facility] Address [address] [place] [address] Care Team Providers Care Publicity Expert Name Role Phone Pcp, No Primary Care Provider Unavailabl e Allergies No known active allergies Social History Tobacco Use Types Packs/Day Years Used Date Smoking Tobacco: Never Assessed Sex and Gender Information Value Date Recorded Sex Assigned at Not on file Legal Sex Male 6:15 PM CDT Gender Identity Not on file Sexual Orientation Not on file Obstetrics History Last Filed Vital Signs Vital Sign Reading Time Taken Comments Blood Pressure 129/81 06/16/2016 11:10 PM CDT Pulse 61 06/16/2016 11:10 PM CDT Temperature 36.3 C (97.4 F) 06/16/2016 6:19 PM CDT Respiratory Rate 14 06/16/2016 11:10 PM CDT Oxygen Saturation 96% 06/16/2016 11:10 PM CDT Inhaled Oxygen Concentration - - Weight 108.9 kg (240 lb) 06/16/2016 6:19 PM CDT Height 177.8 cm (5' 10) 06/16/2016 6:19 PM CDT Body Mass Index 34.44 06/16/2016 6:19 PM CDT Plan of Treatment Not on file Insurance [employer]-ITS Care Teams Publicity Expert Relationship Specialty Start Date End Date Pcp, No . PCP - General 12/18/20
--- OUTSIDE RECORDS SUMMARY | 2025-04-29 18:52 | XMS_ITS | Encounter Summary ---
Author Organization [facility] Address [address] [place] [address] Care Team Providers Care Pipe Fitter Marine Name Role Phone CherelleMarcos rock MD Primary Care Provider [phone] Encounter Details Date Type Department Care Team (Late st Contact Info) Description 04/24/2025 [facility] [address] [facility] [place], [place] [id number] Mychart, [place] [address] Social History Tobacco Use Types Packs/Day Years [...] Info) Description 05/04/2025 10:30 AM CDT Appointment [facility] [address] [place] [address] Marisol Schuler MD [address] [place] [address] 06/01/2025 3:15 PM CDT Appointment [facility] [place] [address] Cardiology [address] [place] [address] Piero De Los Santos DO [address] [place] [address] 06/06/2025 8:00 AM CDT Appointment [facility] [place] [address] Urology [address] [place] [address] [place] [address] [place] [address] documented as of this encounter Visit Diagnoses Not on filedocumented in this encounter Care Teams Pipe Fitter Marine Relationship Specialty [place] [address] [place] [address] PCP - General Family Practice 07/11/21 documented as of this encounter
--- OUTSIDE RECORDS SUMMARY | 2025-04-29 18:52 | XMS_ITS | Clinical Summary ---
Author Organization [facility] Address [address] [place] [address] Care Team Providers Care Financial Supervisor Name Role Phone [facility] Pro vider Allergies No known active allergies Social History Tobacco Use Types Packs/Day Years Used Date Smoking Tobacco: Never Assessed Adolescent Education Answer Date Record ed Getting School Help Needed Not on file 05/22 Sex and Gender Information Value Date Recorded Sex Assigned at Not on file Legal Sex Male 2:27 PM CDT Gender Identity Not on file Sexual Orientation Not on file Last Filed Vital Signs Vital Sign Reading Time Taken Comments Blood Pressure 147/100 11/08/2021 2:30 PM INFECTIOUS WASTE TECHNICIAN Pulse 70 11/08/2021 2:30 PM INFECTIOUS WASTE TECHNICIAN Temperature 36.7 C (98 F) 11/08/2021 12:42 PM INFECTIOUS WASTE TECHNICIAN Respiratory Rate 17 11/08/2021 2:30 PM INFECTIOUS WASTE TECHNICIAN Oxygen Saturation 100% 11/08/2021 2:30 PM INFECTIOUS WASTE TECHNICIAN Inhaled Oxygen Concentration - - Weight 125.5 kg (276 lb 10.8 oz) 2021 12:42 PM INFECTIOUS WASTE TECHNICIAN Height 177.8 cm (5' 10) 11/08/2021 12: 42 PM INFECTIOUS WASTE TECHNICIAN Body Mass Index 39.7 11/08/2021 12:42 PM INFECTIOUS WASTE TECHNICIAN Plan of Treatment Not on file Insurance BCBS OUT OF STATE Care Teams Financial Supervisor Relationship Specialty Start Date End Date [facility] [id number] [place] [address] PCP - General 11/08/21
--- OUTSIDE RECORDS SUMMARY | 2025-04-29 18:52 | XMS_ITS | Encounter Summary ---
Author Organization [employer] Address [address], [place] [address] Care Team Providers Care Semiconductor Technician Name Role Phone CherelleMarcos rock MD Primary Care Provider [phone] Encounter Details Date Type Department Care Team (Late st Contact Info) Description 12/07/2012 Orders Only [facility] [address] [place] [address] Maury Varela MD [address] [place] [address] Tear of medial cartilage or meniscus of knee, current Social History Tobacco Use Types Packs/Day Years Used Date Smoking Tobacco: Never Assessed Sex and Gender Information Value Date Recorded Sex Assigned at Not on file Legal Sex Male 8:18 PM CDT Gender Identity Not on file Sexual Orientation Not on file documented as of this encounter Plan of Treatment Upcoming Encounters Date Type Department Care Team (Late st Contact Info) Description 05/04/2025 10:30 AM CDT Appointment [facility] [address] [place] [address] Marisol Schuler MD [address] [place] [address] 06/01/2025 3:15 PM CDT Appointment [facility] [place] [address] Cardiology [address] [place] [phone] Piero De Los Santos DO [address] [place] [address] 06/06/2025 8:00 AM CDT Appointment [facility] [place] [address] Urology [address] [place] [phone] [place] [address] [place], [place] [phone] documented as of this encounter Visit Diagnoses Diagnosis Tear of medial cartilage or meniscus of knee, current documented in this encounter Care Teams Semiconductor Technician Relationship Specialty Start [place] [address] [place] [address] PCP - General Family Practice 07/11/21 documented as of this encounter
[2025-04-29 19:00] LABS: Albumin* 3.4 g/dL (3.3-5.0); Chloride* 102 mmol/L (96-114); Potassium* 3.7 mmol/L (3.6-5.1); Sodium* 137 mmol/L (135-149)
[2025-04-29 19:02] LABS: Blood Urea Nitrogen* 14 mg/dL (7-30); Creatinine* 1.1 mg/dL (0.5-1.5); Est. Creatinine Clearance* 71.89; Estimated Glomerular Filt Rate 76 ml/min
[2025-04-29 19:03] LABS: Alanine Aminotransferase* 112 U/L (4-50); Alkaline Phosphatase* 128 U/L (40-150); Anion Gap 7 mEq/L (7-15); Aspartate Amino Transferase* 67 U/L (12-35); Bilirubin Direct* 0.5 mg/dL (0.0-0.5); Bilirubin Total* 0.9 mg/dL (0.1-1.5); Calcium* 8.9 mg/dL (8.4-10.6); Carbon Dioxide* 28 mmol/L (20-32); Glucose* 112 mg/dL (60-115); Total Protein* 7.6 g/dL (6.0-8.3)
[2025-04-29 19:09] VITALS: TEMP 37.5
--- NOTE | 2025-04-29 19:14 | CRLHL7_ITS ---
For Patients: As a result of the Century Cures Act, medical imaging exams and procedure reports are released immediately into your electronic medical record. You may view this report before your referring provider. If you have questions, please contact your health care provider. INDICATION: Fever, elevated liver enzymes TECHNIQUE: Ultrasound abdomen limited. Sonographic images of the right upper quadrant were obtained using hoskins-scale and color Doppler images. COMPARISON: None. FINDINGS: Evaluation limited by poor acoustic windows due to bowel gas. Liver: Increased in echogenicity, likely reflecting fatty infiltration. No suspicious masses. No intrahepatic biliary ductal dilatation. Gallbladder: No stones or sludge. Normal wall thickness. No pericholecystic fluid. Negative sonographic Sharma`s sign. Common bile duct: Not visualized. Pancreas: Not visualized, obscured by bowel gas. Right kidney: Normal in size. Normal echotexture and cortex. Superior pole cyst measuring 3.6 x 3.3 x 3.8 cm. Inferior pole echogenic focus measuring 1.7 x 0.6 x 1.3 cm, representing cortical calcification versus nephrolithiasis. No hydronephrosis. Vasculature: Proximal abdominal aorta and IVC are unremarkable. Main portal vein is patent with hepatopetal flow. IMPRESSION: 1. Hepatic steatosis. 2. Nonvisualization of the common bile duct and pancreas. 3. Right renal cyst and cortical calcification versus nephrolithiasis. No hydronephrosis. Dictated by Srinath Iraheta MD @ 04/29/2025 9:17:15 PM (Electronically Signed)
[2025-04-29 19:20] LABS: Procalcitonin* 0.18 ng/mL (<0.50)
--- NOTE | 2025-04-29 19:25 | CRLHL7_ITS ---
For Patients: As a result of the 21st Century Cures Act, medical imaging exams and procedure reports are released immediately into your electronic medical record. You may view this report before your referring provider. If you have questions, please contact your health care provider. INDICATION: Fever, mild transaminase. TECHNIQUE: CT chest, abdomen, and pelvis acquired with 139 cc Isovue 370 IV contrast. COMPARISON: None. FINDINGS: CHEST: Lungs and pleura: 11 mm nodule in the lingula (series 3, image 47). Minimal bibasilar atelectasis. No acute infiltrates. No pleural effusions or pneumothorax. Cardiovascular structures: Heart size is normal. Thoracic aorta and main pulmonary artery are normal in caliber. Mediastinum and dharmesh: No mass or adenopathy. Chest wall and axilla: No mass or adenopathy. Bones: No suspicious bone lesions. Unremarkable for age. ABDOMEN AND PELVIS: Liver: Unremarkable. Gallbladder and bile ducts: Unremarkable. Spleen: Unremarkable. Adrenal glands: Unremarkable. Pancreas: Unremarkable. Kidneys: 3.7 cm right superior pole cyst. 6 mm right cortical calcification. No hydronephrosis. GI tract: Tiny hiatal hernia. No evidence of obstruction. Normal appendix. Lymph nodes: Enlarged left iliac chain and pelvic sidewall lymph nodes. Vascular structures: Unremarkable. Miscellaneous: Trace free fluid in the pelvis. No free air. Tiny supraumbilical hernia. Pelvic organs: Peripherally enhancing lobulated low-density collection along the left pelvic sidewall measuring approximately 4.6 x 6.3 x 7.6 cm (TR x AP x CC). This collections extends into the adjacent left pectineus muscle. There is significant surrounding inflammatory stranding. Status post prostatectomy. Mild wall thickening of the urinary bladder. Bones: No suspicious bone lesions. Unremarkable for age. IMPRESSION: 1. Peripherally enhancing lobulated low-density collection along the left pelvic sidewall and extending into the left pectineus muscle, measuring approximately 4.6 x 6.3 x 7.6 cm. Findings may represent an abscess. Given postsurgical changes of prostatectomy, superinfected lymphocele would be a differential consideration. 2. Mild urinary bladder wall thickening, which may be reactive. Consider correlation with urinalysis to exclude cystitis. 3. Enlarged left iliac chain and pelvic sidewall lymph nodes, favored reactive. 4. 11 mm lingular nodule. Please see below for follow-up guidelines. 5. Other incidental findings as above. SOCIETY GUIDELINES - SOLID NODULES: SINGLE LOW RISK - nodule less than 6 mm: No routine follow-up. - nodule 6-8 mm: CT at 6-12 months, then consider CT at 18-24 months. - nodule greater than 8 mm: Consider CT at 3 months, PET/CT or tissue sampling. SINGLE HIGH RISK - nodule less than 6 mm: Optional CT at 12 months. - nodule 6-8 mm: CT at 6-12 months, then CT at 18-24 months. - nodule greater than 8 mm: Consider CT at 3 months, PET/CT or tissue sampling. MULTIPLE LOW RISK - nodule less than 6 mm: No routine follow-up. - nodule 6-8 mm: CT at 3-6 months, then consider CT at 18-24 months. - nodule greater than 8 mm: CT at 3-6 months, then consider CT at 18-24 months. MULTIPLE HIGH RISK - nodule less than 6 mm: Optional CT at 12 months. - nodule 6-8 mm: CT at 3-6 months, then at 18-24 months. - nodule greater than 8 mm: CT at 3-6 months, then at 18-24 months. Please note that all CT scans at this facility use dose modulation, iterative reconstruction, and/or weight-based dosing when appropriate to reduce radiation dose to as low as reasonably achievable. Dictated by Srinath Iraheta MD @ 04/29/2025 9:13:29 PM (Electronically Signed)
[2025-04-29 19:28] VITALS: BP 150/85; PULSE 88; RESP 18; TEMP 37; O2SAT 94
[2025-04-29 19:32] LABS: Appearance Urine Slightly Cloudy (Clear)
[2025-04-29 19:46] LABS: Erythrocyte SedimentationRate* 75 mm/hr (2-15)
[2025-04-29 21:30] VITALS: BP 137/90; PULSE 76; RESP 16; O2SAT 96
[2025-04-29] MEDS: metroNIDAZOLE 500 MG/100 ML PIGGYBACK 100 MG IVPB (21:32)
[2025-04-29] MEDS: CEFEPIME HCL 2 GM in 0.9 % SODIUM CHLORIDE Mini-bag 100 ML IVPB (21:55)
--- NOTE | 2025-04-30 13:03 | PC.NURSE ---
Patients called to see if we could re-print the disc that has the images needed for further care at [facility] in [facility]. The disc was lost in route of transfer and is needed for interventional radiology procedure. Faxed a CALDERON to [facility] for patient to sign to release disc to patients , Radha. Service Recovery was performed as well. Ems Coordinator did check around the ER, imaging and contacted the EMS color paste mixing supervisor to see if disc was found, but no sign of it.
== END 2025-04-30 00:20 | disposition short-term general hospital (02) ==
PROVIDERS: Emergency Provider Family Medicine; PCP Family Medicine
DX: K65.1 Peritoneal abscess (principal)
CPT/HCPCS: 36415; 71260; 74177; 76705; 80053; 81001; 82248; 83605; 84145; 85025; 85651; 86140; 86789; 87040; 87086; 87631; 94761; 96365; 96366; 99285; J0692; J1836; J7030; Q9967

== ENCOUNTER 2025-04-30 00:07 | Outpatient (CLI) | payer BC, SELFPAY | END 2025-04-30 00:08 | disposition home or self-care (01) | LOC: AMB 05-02 15:11 | PROVIDERS: PCP Family Medicine; Visit Provider Family Medicine | DX: K65.1 Peritoneal abscess (principal) | CPT/HCPCS: A0425; A0429 ==